=== PATIENT | male | born 1930 | race Caucasian/White ===

== ENCOUNTER 2016-11-26 11:34 | Emergency (ER) | payer MEDICARE ==
[2016-11-26 11:42] VITALS: BP 120/73
--- NOTE | 2016-11-26 12:21 | UC ---
Throat Pain/Nasal Shaw HPI - HPI Summary HPI Summary: had 4 months of cough that got better with inhalers rx by PCP. Has remaining 2 weeks of sinus pain and congestion with post nasal drip for 2 weeks - History of Current Complaint Hx Obtained From: Patient Onset/Duration: Lasting Weeks - 2, Still Present Severity: Moderate Pain Intensity: 4 Pain Scale Used: 0-10 Numeric Cough: Nonproductive Associated Signs & Symptoms: Positive: Sinus Discomfort, Nasal Discharge <Jennifer Charles - Last Filed: 11/26/16 12:33> <Berenice Hawkins - Last Filed: 11/26/16 13:30> - History of Current Complaint Chief Complaint: UCRespiratory Stated Complaint: SINUS,SORE THROAT,CONGESTION Time Seen by Provider: 11/26/16 12:15 - Allergies/Home Medications Allergies/Adverse Reactions: Allergies Allergy/AdvReac Type Severity Reaction Status Date / Time muscle relaxers AdvReac Mild makes less Uncoded 11/26/16 11:43 relaxed Home Medications: Home Medications Fluticas/Salmet 230/21 HFA(NF) [Advair HFA 23O/21 (NF)] 1 puff PO BID 11/26/16 [ History Confirmed 11/26/16] PMH/Surg Hx/FS Hx/Imm Hx Previously Healthy: No Respiratory History: Other Other Respiratory History: bronchospasm GI/ History: Gastroesophageal Reflux Neurological History: Dementia - mild - Surgical History Surgical History: Yes Surgery Procedure, Year, and Place: appendectomy/tonsilectomy "Years Ago". right ankle SURGERY - Family History Known Family History: Positive: None - Social History Occupation: Employed Full-time Lives: With Family Alcohol Use: Occasionally Substance Use Type: None Smoking Status (MU): Former Smoker Amount Used/How Often: VERY SHORT PERIOD OF TIME When Did the Patient Quit Smoking/Using Tobacco: YEARS AGO Household Exposure Type: Cigarettes - Immunization History Most Recent Influenza Vaccination: 01/27/13 Most Recent Tetanus Shot: unable to recall Most Recent Pneumonia Vaccination: NA <Jennifer Charles - Last Filed: 11/26/16 12:33> Review of Systems Constitutional: Negative Skin: Negative Eyes: Negative ENT: Nasal Discharge, Sinus Congestion, Sinus Pain/Tenderness Respiratory: Cough Cardiovascular: Negative Gastrointestinal: Negative Genitourinary: Negative Motor: Negative Neurovascular: Negative Musculoskeletal: Negative Neurological: Negative Psychological: Negative All Other Systems Reviewed And Are Negative: Yes <Jennifer Charles - Last Filed: 11/26/16 12:33> Physical Exam Triage Information Reviewed: Yes Appearance: Well-Appearing, No Pain Distress, Well-Nourished Vital Signs: Initial Vital Signs Temp 97.4 F 11/26/16 11:37 Pulse 55 11/26/16 11:37 Resp 18 11/26/16 11:37 BP 120/73 11/26/16 11:37 Pulse Ox 95 11/26/16 11:37 Vital Signs Reviewed: Yes Eye Exam: Normal Eyes: Positive: Conjunctiva Clear ENT Exam: Normal ENT: Positive: Normal ENT inspection, Hearing grossly normal, Pharynx normal, TMs normal. Negative: Nasal congestion, Nasal drainage, Tonsillar swelling, Tonsillar exudate, Trismus, Muffled/hoarse voice Dental Exam: Normal Neck exam: Normal Neck: Positive: Supple, Nontender, No Lymphadenopathy Respiratory Exam: Normal Respiratory: Positive: Chest non-tender, Lungs clear, Normal breath sounds, No respiratory distress, No accessory muscle use Cardiovascular Exam: Normal Cardiovascular: Positive: RRR, No Murmur, Pulses Normal, Brisk Capillary Refill Musculoskeletal Exam: Normal Musculoskeletal: Positive: Strength Intact, ROM Intact, No Edema Neurological Exam: Normal Neurological: Positive: Alert, Muscle Tone Normal Psychological Exam: Normal Skin Exam: Normal <Jennifer Charles - Last Filed: 11/26/16 12:33> Vital Signs: Initial Vital Signs Temp 97.4 F 11/26/16 11:37 Pulse 55 11/26/16 11:37 Resp 18 11/26/16 11:37 BP 120/73 11/26/16 11:37 Pulse Ox 95 11/26/16 11:37 <Breenice Hawkins - Last Filed: 11/26/16 13:30> Throat Pain/Nasal Course/Dx - Course Assessment/Plan: Flonase, augmentin, increase fluids, follow with pcp - Differential Dx/Diagnosis Differential Diagnosis/HQI/PQRI: Otitis Media, Pharyngitis, Sinusitis, URI Provider Diagnoses: Sinusitis <Jennifer Charles - Last Filed: 11/26/16 12:33> Discharge <Jennifer Charles - Last Filed: 11/26/16 12:33> <Berenice Hawkins - Last Filed: 11/26/16 13:30> - Discharge Plan Condition: Stable Disposition: HOME Prescriptions: Amoxicillin/Clavulanate TAB* [Augmentin TAB 875*] 875 mg PO BID #20 tab Fluticasone NASAL SPRAY 50MCG* [Flonase NASAL SPRAY 50MCG*] 2 spray BOTH NARES DAILY #1 btl Patient Education Materials: Sinusitis (ED), How to Use Nasal Stanley (ED) Referrals: Naun Hill MD [Primary Care Provider] - 2 Weeks Attestation Statement User Type: Provider - I was available for consult. This patient was seen by the LE[facility]. The patient was not presented to, seen by, or examined by me. -Jaime <Bereniec Hawkins - Last Filed: 11/26/16 13:30>
== END 2016-11-26 12:28 | disposition home or self-care (01) ==
LOC: UCEAST 11:34
DX: J32.9 Chronic sinusitis, unspecified (principal); Z87.891 Personal history of nicotine dependence
CPT/HCPCS: 99212; G0463

== ENCOUNTER 2016-12-02 21:09 | Emergency (ER) | payer MEDICARE ==
[2016-12-02 21:19] VITALS: BP 130/80
[2016-12-02] MEDS ORDERED: predniSONE TAB* 20 MG PO ONE (21:58)
--- NOTE | 2016-12-02 22:00 | UC ---
Throat Pain/Nasal Shaw HPI - HPI Summary HPI Summary: 86yo male being treated with augmentin for a sinus infection doing well until today when he started coughing a lot increased sinus pressure thinks it's due to dust in the house recent home renovation - History of Current Complaint Chief Complaint: UCRespiratory Stated Complaint: SINUS INFECTION RE-CHECK Time Seen by Provider: 12/02/16 21:36 Hx Obtained From: Patient Onset/Duration: Gradual Onset, Lasting Days Severity: Mild Pain Intensity: 1 Pain Scale Used: 0-10 Numeric Cough: Nonproductive Associated Signs & Symptoms: Positive: Sinus Discomfort, Nasal Discharge - Epiglottits Risk Factors Epiglottis Risk Factors: Negative - Allergies/Home Medications Allergies/Adverse Reactions: Allergies Allergy/AdvReac Type Severity Reaction Status Date / Time muscle relaxers AdvReac Mild makes less Uncoded 12/02/16 21:20 relaxed Home Medications: Home Medications Fluticasone Propionate (Nasal) [Allergy Relief] 50 mcg NA 12/02/16 [History Confirmed 12/02/16] Levothyroxine TAB* [Synthroid TAB*] 25 mcg PO DAILY 12/02/16 [History Confirmed 12/02/16] Proair Hfa* 2 puff PRN 12/02/16 [History] Quetiapine Fumarate [Quetiapine Fumarate ER] 2 tab PO BEDTIME 12/02/16 [History Confirmed 12/02/16] PMH/Surg Hx/FS Hx/Imm Hx Previously Healthy: Yes Endocrine History: Hypothyroidism Respiratory History: Asthma, Bronchitis - Surgical History Surgical History: Yes Surgery Procedure, Year, and Place: appendectomy/tonsilectomy "Years Ago". right ankle SURGERY - Family History Known Family History: Positive: Hypertension - Social History Alcohol Use: Daily Alcohol Amount: WINE WITH DINNER Substance Use Type: None Smoking Status (MU): Former Smoker Amount Used/How Often: VERY SHORT PERIOD OF TIME When Did the Patient Quit Smoking/Using Tobacco: YEARS AGO Household Exposure Type: Cigarettes - Immunization History Most Recent Influenza Vaccination: 01/27/13 Most Recent Tetanus Shot: unable to recall Most Recent Pneumonia Vaccination: NA Review of Systems Constitutional: Negative Skin: Negative Eyes: Negative ENT: Sinus Congestion Respiratory: Cough Cardiovascular: Negative Gastrointestinal: Negative Genitourinary: Negative Motor: Negative Neurovascular: Negative Musculoskeletal: Negative Neurological: Negative Psychological: Negative All Other Systems Reviewed And Are Negative: Yes Physical Exam Triage Information Reviewed: Yes Appearance: No Pain Distress, Well-Nourished Vital Signs: Initial Vital Signs Temp 97.9 F 12/02/16 21:15 Pulse 58 12/02/16 21:15 Resp 16 12/02/16 21:15 BP 130/80 12/02/16 21:15 Pulse Ox 100 12/02/16 21:15 Eyes: Positive: Conjunctiva Clear ENT: Positive: Hearing grossly normal, Nasal congestion, Nasal drainage. Negative: Trismus, Muffled/hoarse voice Neck: Positive: Supple, Nontender, No Lymphadenopathy Respiratory: Positive: Lungs clear, Normal breath sounds, No respiratory distress, No accessory muscle use Cardiovascular: Positive: RRR, No Murmur Musculoskeletal: Positive: Strength Intact, ROM Intact Neurological: Positive: Alert Psychological Exam: Normal Skin Exam: Normal Throat Pain/Nasal Course/Dx - Differential Dx/Diagnosis Provider Diagnoses: sinusitis Discharge - Discharge Plan Condition: Stable Disposition: HOME Prescriptions: Prednisone [Deltasone] 20 mg PO DAILY #2 tab Patient Education Materials: Sinusitis (ED) Referrals: Naun Hill MD [Primary Care Provider] - 3 Days Additional Instructions: continue current treatment get rechecked early next week if not better
== END 2016-12-02 22:17 | disposition home or self-care (01) ==
LOC: UCEAST 21:09
DX: Z51.89 Encounter for other specified aftercare (principal); J32.9 Chronic sinusitis, unspecified; E03.9 Hypothyroidism, unspecified; J45.909 Unspecified asthma, uncomplicated; Z87.891 Personal history of nicotine dependence
CPT/HCPCS: 99212; G0463; J7512

== ENCOUNTER 2016-12-16 04:26 | Emergency (ER) | payer MEDICARE ==
[2016-12-16] MEDS ORDERED: diPHENhydraMINE PO* 25 MG PO ONE (04:39)
[2016-12-16] MEDS ORDERED: Ketorolac INJ* 60 MG/2 ML VIAL IM ONE (04:39)
--- NOTE | 2016-12-16 04:56 | ED ---
Veronique Cuevas Alfonso, scribed for Daren Grajeda MD on 12/16/16 at 0444 . Bite Injury/Animal - HPI Summary HPI Summary: This patient is an 86 year old M presenting to [facility] accompanied by with a chief complaint of hornet stings at 1000 yesterday. Pt rates the pain 7/10 in severity. Symptoms aggravated and alleviated by nothing. Sx not alleviated by Benadryl and Aleve taken at 2000 yesterday. Pt reports bilateral leg pain and right elbow pain. Pt has slurred speech at baseline per . PMHx of dementia. - History of Current Complaint Chief Complaint: EDAnimalBite Stated Complaint: STUNG BY HORNETS ON 12-15-16 Time Seen by Provider: 12/16/16 04:36 Hx Obtained From: Patient, Family/Canine Enforcement Officer - Onset of Injury: Happened hours ago - 1000 yesterday, Still Present Type of Bite: Animal - "Hornet" Severity Initially: Moderate Severity Currently: Moderate Pain Intensity: 7 Pain Scale Used: 0-10 Numeric Aggravating Factor(s): Nothing Alleviating Factor(s): Nothing - Allergies/Home Medications Allergies/Adverse Reactions: Allergies Allergy/AdvReac Type Severity Reaction Status Date / Time muscle relaxers AdvReac Mild makes less Uncoded 12/16/16 04:43 relaxed PMH/Surg Hx/FS Hx/Imm Hx Endocrine/Hematology History: Reports: Hx Thyroid Disease Denies: Hx Diabetes Cardiovascular History: Reports: Hx Coronary Artery Disease, Hx Hypercholesterolemia, Hx Valvular Heart Disease - Tricuspid, mitral Denies: Hx Hypertension, Hx Pacemaker/ICD Respiratory History: Reports: Hx Asthma - new dx 04/2013, Hx Sleep Apnea - REFUSES TO USE MACHINE, Other Respiratory Problems/Disorders - ex-smoker, dyspnea Denies: Hx Chronic Obstructive Pulmonary Disease (COPD) GI History: Reports: Hx Gastroesophageal Reflux Disease - ON MEDICATION FOR, Hx Irritable Bowel Denies: Hx Ulcer History: Reports: Hx Benign Prostatic Hyperplasia Denies: Hx Kidney Stones Musculoskeletal History: Reports: Hx Arthritis - NECK Denies: Hx Rheumatoid Arthritis, Hx Osteoporosis Sensory History: Reports: Hx Cataracts, Hx Contacts or Glasses - READING Denies: Hx Hearing Aid Opthamlomology History: Reports: Hx Cataracts, Hx Contacts or Glasses - READING Neurological History: Reports: Hx Dementia Denies: Other Neuro Impairments/Disorders Psychiatric History: Reports: Hx Anxiety - NO MEDICATION FOR, Hx Depression - NO MEDICATION FOR, Other Psychiatric Issues/Disorders - dementia issues Denies: Hx Eating Disorder, Hx Panic Disorder, Hx of Violent Episodes Against Others - Surgical History Surgery Procedure, Year, and Place: appendectomy/tonsilectomy "Years Ago". right ankle SURGERY Hx Anesthesia Reactions: No Infectious Disease History: No Infectious Disease History: Denies: Hx Clostridium Difficile, Hx Hepatitis, Hx Human Immunodeficiency Virus (HIV), Hx of Known/Suspected MRSA, Hx Shingles, Hx Tuberculosis, Hx Known/ Suspected VRE, Hx Known/Suspected VRSA, History Other Infectious Disease, Traveled Outside the [place] in Last 30 Days - Family History Known Family History: Positive: Hypertension - Social History Alcohol Use: Daily Alcohol Amount: WINE WITH DINNER Substance Use Type: Reports: None Hx Tobacco Use: No Smoking Status (MU): Former Smoker Amount Used/How Often: VERY SHORT PERIOD OF TIME Review of Systems Negative: Fever Positive: Other - Positive "hornet stings," bilateral leg pain, right elbow pain , and slurred speech (baseline). All Other Systems Reviewed And Are Negative: Yes Physical Exam Vital Signs On Initial Exam: Initial Vitals Temp Pulse Resp BP Pulse Ox 97.2 F 70 18 116/71 97 12/16/16 04:32 12/16/16 04:32 12/16/16 04:32 12/16/16 04:32 12/16/16 04:32 Diagnostics - Vital Signs Vital Signs Temp Pulse Resp BP Pulse Ox 12/16/16 04:33 70 96 12/16/16 04:32 97.2 F 70 18 116/71 97 - Laboratory Lab Statement: Any lab studies that have been ordered have been reviewed, and results considered in the medical decision making process. Bite Injury Course/Dx - Course Assessment/Plan: This patient is an 86 year old M presenting to [facility] accompanied by with a chief complaint of hornet stings at 1000 yesterday. Symptoms not alleviated by Benadryl and Aleve taken at 2000 yesterday. Pt reports bilateral leg pain and right elbow pain. Pt has slurred speech at baseline per . PMHx of dementia. Pt given Toradol and Benadryl in the ED course. Patient will be discharged with follow up from PCP. Pt and are agreeable with this plan. - Diagnoses Provider Diagnosis: Insect sting Discharge - Discharge Plan Condition: Stable Disposition: HOME Patient Education Materials: Insect Bite or Sting (ED) Referrals: Naun Hill MD [Primary Care Provider] - 3 Days The documentation as recorded by the Veronique gorman Alfonso accurately reflects the service I personally performed and the decisions made by , Daren Grajeda MD.
[2016-12-16 05:45] VITALS: BP 122/101
== END 2016-12-16 05:43 | disposition home or self-care (01) ==
LOC: ED 04:26
DX: T63.441A Toxic effect of venom of bees, accidental (unintentional), initial encounter (principal); M25.521 Pain in right elbow; R47.81 Slurred speech; Y92.9 Unspecified place or not applicable; Z87.891 Personal history of nicotine dependence
CPT/HCPCS: 96372; 99283; A9270-GY; J1885

== ENCOUNTER 2017-06-18 16:35 | Emergency (ER) | payer MEDICARE ==
[2017-06-18 17:05] VITALS: BP 139/89
--- NOTE | 2017-06-18 17:42 | UC ---
Abdominal Pain Male HPI - HPI Summary HPI Summary: Patient presents with an unremarkable past medical history. He reports he typically works out 3x a week. He states today when he was in congregational he had sudden severe RUQ abdominl, lower rib cage pain. He states the pain is worse with certain movements, and he states this afternoon when he laid down on his left side it bothered him more, and when he turns to the right side it hurts more. He denies any new activity that might account for the pain. He denies any fever, chills, nausea, vomiting, diarrhea. He states he recovered from GI illness 2 wees ago. - History of Current Complaint Chief Complaint: UCAbdominalPain Stated Complaint: PAIN IN LOWER ABD Time Seen by Provider: 06/18/17 17:28 Hx Obtained From: Patient, Family/Religious Assistant Onset/Duration: Sudden Onset, Lasting Minutes Severity Initially: Severe Severity Currently: Moderate Pain Intensity: 8 Location: Discrete At: RUQ Character: Sharp Aggravating Factor(s): Movement Alleviating Factor(s): Spontaneous Resolution Associated Signs And Symptoms: Positive: Negative - Risk Factors Testicular Torsion: Negative Cardiac Risk Factors: Negative - Allergies/Home Medications Allergies/Adverse Reactions: Allergies Allergy/AdvReac Type Severity Reaction Status Date / Time prednisone Allergy Anxiety Verified 06/18/17 17:06 muscle relaxers AdvReac Mild makes less Uncoded 06/18/17 17:05 relaxed PMH/Surg Hx/FS Hx/Imm Hx Previously Healthy: Yes - Surgical History Surgical History: Yes Surgery Procedure, Year, and Place: appendectomy/tonsilectomy "Years Ago". right ankle SURGERY - Family History Known Family History: Positive: None, Hypertension - Social History Occupation: Retired Lives: Alone Alcohol Use: Daily Alcohol Amount: WINE WITH DINNER Substance Use Type: None Smoking Status (MU): Former Smoker Amount Used/How Often: VERY SHORT PERIOD OF TIME When Did the Patient Quit Smoking/Using Tobacco: YEARS AGO Household Exposure Type: Cigarettes - Immunization History Most Recent Influenza Vaccination: 01/27/13 Most Recent Tetanus Shot: unable to recall Most Recent Pneumonia Vaccination: NA Review of Systems Constitutional: Negative Skin: Negative Eyes: Negative ENT: Negative Respiratory: Negative Cardiovascular: Negative Gastrointestinal: Abdominal Pain Genitourinary: Negative Motor: Negative Neurovascular: Negative Musculoskeletal: Negative Neurological: Negative Psychological: Negative Is Patient Immunocompromised?: No All Other Systems Reviewed And Are Negative: Yes Physical Exam Triage Information Reviewed: Yes Appearance: Pain Distress Vital Signs: Initial Vital Signs Temp 98.7 F 06/18/17 17:00 Pulse 71 06/18/17 17:00 Resp 20 06/18/17 17:00 BP 139/89 06/18/17 17:00 Pulse Ox 99 06/18/17 17:00 Vital Signs Reviewed: Yes Eye Exam: Normal ENT Exam: Normal Neck exam: Normal Neck: Positive: 1 Respiratory Exam: Normal Cardiovascular Exam: Normal Abdominal Exam: Other - pain on palpation of the RUQ and along the costal margins on the right side. Musculoskeletal Exam: Normal Neurological Exam: Normal Psychological Exam: Normal Skin Exam: Normal Abd Pain Male Course/Dx - Course Course Of Treatment: Patient presents with complaints of sudden sharp severe RUQ abdominal and lower costal margins of pain. The episodes have been intermittent since congregational and appear to be somewhat reporducible at times, and other times spontaeous. I did a chest xray in the department per his request which was read a negative. EKG was obtained and read by Dr. Rogers as sinus bradycarida, and was discussed with the patient. Given the symptoms, advanced age I did recommend that he go directly to the ER. He declined ambulance transport and perferred to drive himself. His was with him and able to accompany his to the ER. - Differential Dx/Clinical Impression Differential Diagnosis/HQI/PQRI: Other - abdominal pain Provider Diagnoses: abdominal pain Discharge - Discharge Plan Condition: Stable Disposition: OTHER Discharge Disposition Comment: go directly to the er. Patient Education Materials: Acute Abdominal Pain (DC) Referrals: Naun Hill MD [Primary Care Provider] - Additional Instructions: go directly to the emergency department.
--- NOTE | 2017-06-18 18:49 | RAD ---
INDICATION: Atraumatic right upper quadrant and lower right rib pain COMPARISON: Chest x-ray dated December 10, 2013 TECHNIQUE: PA and lateral views of the chest were obtained. FINDINGS: The heart and mediastinum are normal in size and contour. Stable linear density overlying the right costophrenic angle on the AP view is similar in appearance to the prior chest x-ray and likely represents scarring. Otherwise the lungs are grossly clear. There is no evidence of large pleural effusion. Visualized bones are normal for the patient's age. There is no radiographic evidence of free air beneath the diaphragm IMPRESSION: No radiographic evidence of acute cardiopulmonary disease.
== END 2017-06-18 18:05 ==
LOC: UCEAST 16:35
DX: R10.11 Right upper quadrant pain (principal); R07.81 Pleurodynia; Z88.8 Allergy status to other drugs, medicaments and biological substances; Z87.891 Personal history of nicotine dependence
CPT/HCPCS: 71046; 93005; 99212; G0463

== ENCOUNTER 2017-06-18 19:11 | Emergency (ER) | payer MEDICARE ==
[2017-06-18] MEDS ORDERED: NS 0.9% 1000 ML* 1,000 ML IV ONE (21:30)
[2017-06-18 22:16] LABS: ABS Basophils 0.1 10^3/ul (0-0.2); ABS Eosinophils 0.1 10^3/ul (0-0.6); ABS Lymphocytes 2.3 10^3/ul (1.0-4.8); ABS Monocytes 0.5 10^3/ul (0-0.8); ABS Neutrophils 3.8 10^3/ul (1.5-7.7); ABS Nucleated RBC 0 10^3/ul; Eosinophil % 2.1 % (0-6); Hematocrit 40 % (42-52); Hemoglobin 13.4 g/dl (14.0-18.0); Lymphocyte % 33.6 % (25-47); Mean Corpuscular HGB Conc 33 g/dl (31-36); Mean Corpuscular Hemoglobin 31 pg (27-31); Mean Corpuscular Volume 93 fL (80-94); Mean Platelet Volume 8 um3 (7.4-10.4); Nucleated Red Blood Cells % 0.1; Platelet Count 203 10^3/ul (150-450); Red Blood Count 4.35 10^6/ul (4.0-5.4); Red Cell Distribution Width 14 % (10.5-15); White Blood Count 6.8 10^3/ul (3.5-10.8)
[2017-06-18 22:30] LABS: Urine Appearance Clear; Urine Blood Negative (Negative); Urine Color Yellow; Urine Ketones Negative (Negative); Urine Protein Negative (Negative); Urine Specific Gravity 1.011 (1.010-1.030); Urine Urobilinogen Negative (Negative)
[2017-06-18 22:31] LABS: EGFR Non-African American 46.3 (>60)
[2017-06-18 22:32] LABS: INR 0.9 (0.77-1.02)
--- NOTE | 2017-06-18 22:32 | RAD ---
CLINICAL HISTORY: Abdominal pain. Relevant surgical history includes appendectomy. COMPARISON: None TECHNIQUE: Noncontrast CT examination of the abdomen and pelvis from the lung bases through the initial tuberosities. FINDINGS: VISUALIZED LUNG BASES: The visualized lung bases are grossly clear. There is no pleural effusion. ABDOMEN AND PELVIS: Evaluation of the solid organs and vasculature is limited without intravenous contrast. The liver, spleen and adrenal glands are grossly normal in appearance. The gallbladder is normal. Coarse calcifications are noted in the otherwise normal-appearing appendix. The kidneys are normal in appearance without focal mass, calcification or signs of hydronephrosis. Evaluation of the gastrointestinal tract is limited without oral contrast. The small and large bowel are not distended. Consistent with the patient's reported medical history, the appendix is not seen. There are innumerable rectosigmoid diverticula but no focal inflammatory change consistent with diverticulitis. There is no gross retroperitoneal or mesenteric lymphadenopathy. A penile prosthesis is noted. The prostate is enlarged measuring 4.1 x 4.9 cm in the axial plane and approximately 5.6 cm in the cephalocaudal projection. The abdominal aorta and iliac arteries are normal in course and diameter. Degenerative changes include multilevel loss of intervertebral disc height involving the lower thoracic and lumbar spine.There are no sinister bone lesions. IMPRESSION: 1. Diverticulosis without signs of acute inflammatory change within the limitations of a noncontrast CT examination. 2. There are chronic, degenerative and postsurgical changes described in the body the report but no acute findings that would account for the patient's current presentation.
--- NOTE | 2017-06-18 23:53 | ED ---
Go Cuevas Tiffany, scribed for Bin Reyna MD on 06/18/17 at 2155 . Abdominal Pain/Male - HPI Summary HPI Summary: The patient is an 86 year old M referred from [facility] accompanied by with a chief complaint of right-sided abdominal pain since this morning. The pain is described as sharp. The patient rates the pain 7/10 in severity. Symptoms aggravated by nothing. Symptoms alleviated by nothing. Patient denies fever, shortness of breath, cough and dysuria. - History of Current Complaint Chief Complaint: EDAbdPain Stated Complaint: SHARP ABD PAIN, COMING FROM CC Time Seen by Provider: 06/18/17 21:17 Hx Obtained From: Patient Onset/Duration: Lasting Hours - Since this morning, Still Present Severity Currently: Moderate Pain Intensity: 7 Pain Scale Used: 0-10 Numeric Character: Sharp Aggravating Factor(s): Nothing Alleviating Factor(s): Nothing Associated Signs And Symptoms: Positive: Negative - fever, shortness of breath, cough and dysuria - Allergies/Home Medications Allergies/Adverse Reactions: Allergies Allergy/AdvReac Type Severity Reaction Status Date / Time prednisone Allergy Anxiety Verified 06/18/17 17:06 muscle relaxers AdvReac Mild makes less Uncoded 06/18/17 17:05 relaxed PMH/Surg Hx/FS Hx/Imm Hx Previously Healthy: No Endocrine/Hematology History: Reports: Hx Thyroid Disease Denies: Hx Diabetes Cardiovascular History: Reports: Hx Coronary Artery Disease, Hx Hypercholesterolemia, Hx Valvular Heart Disease - Tricuspid, mitral Denies: Hx Hypertension, Hx Pacemaker/ICD Respiratory History: Reports: Hx Asthma - new dx 04/2013, Hx Sleep Apnea - REFUSES TO USE MACHINE, Other Respiratory Problems/Disorders - ex-smoker, dyspnea Denies: Hx Chronic Obstructive Pulmonary Disease (COPD) GI History: Reports: Hx Gastroesophageal Reflux Disease - ON MEDICATION FOR, Hx Irritable Bowel Denies: Hx Ulcer History: Reports: Hx Benign Prostatic Hyperplasia Denies: Hx Kidney Stones Musculoskeletal History: Reports: Hx Arthritis - NECK Denies: Hx Rheumatoid Arthritis, Hx Osteoporosis Sensory History: Reports: Hx Cataracts, Hx Contacts or Glasses - READING Denies: Hx Hearing Aid Opthamlomology History: Reports: Hx Cataracts, Hx Contacts or Glasses - READING Neurological History: Reports: Hx Dementia Denies: Other Neuro Impairments/Disorders Psychiatric History: Reports: Hx Anxiety - NO MEDICATION FOR, Hx Depression - NO MEDICATION FOR, Other Psychiatric Issues/Disorders - dementia issues Denies: Hx Eating Disorder, Hx Panic Disorder, Hx of Violent Episodes Against Others - Surgical History Surgery Procedure, Year, and Place: appendectomy/tonsilectomy "Years Ago". right ankle SURGERY Hx Anesthesia Reactions: No Infectious Disease History: No Infectious Disease History: Denies: Hx Clostridium Difficile, Hx Hepatitis, Hx Human Immunodeficiency Virus (HIV), Hx of Known/Suspected MRSA, Hx Shingles, Hx Tuberculosis, Hx Known/ Suspected VRE, Hx Known/Suspected VRSA, History Other Infectious Disease, Traveled Outside the [place] in Last 30 Days - Family History Known Family History: Positive: Hypertension - Social History Alcohol Use: Daily Alcohol Amount: WINE WITH DINNER Hx Substance Use: No Substance Use Type: Reports: None Hx Tobacco Use: Yes Smoking Status (MU): Former Smoker Amount Used/How Often: VERY SHORT PERIOD OF TIME Review of Systems Negative: Fever Negative: Shortness Of Breath, Cough Positive: Abdominal Pain - Right-sided Negative: dysuria All Other Systems Reviewed And Are Negative: Yes Physical Exam - Summary Physical Exam Summary: General: well-appearing, no pain distress Skin: warm, color reflects adequate perfusion, dry Head: normal Eyes: EOMI, NOE ENT: normal Neck: supple, nontender Respiratory: CTA, breath sounds present Cardiovascular: RRR Abdomen: soft, nontender Bowel: present Musculoskeletal: normal, strength/ROM intact Neurological: normal, sensory/motor intact, A&O x3 Psychological: affect/mood appropriate Triage Information Reviewed: Yes Vital Signs On Initial Exam: Initial Vitals Temp Pulse Resp BP Pulse Ox 97.7 F 65 14 137/84 97 06/18/17 19:23 06/18/17 19:23 06/18/17 19:23 06/18/17 19:23 06/18/17 19:23 Vital Signs Reviewed: Yes Diagnostics - Vital Signs Vital Signs Temp Pulse Resp BP Pulse Ox 06/18/17 21:00 56 130/75 99 06/18/17 20:39 85 06/18/17 20:34 164/78 06/18/17 19:23 97.7 F 65 14 137/84 97 - Laboratory Result Diagrams: 06/18/17 22:04 06/18/17 22:04 Lab Statement: Any lab studies that have been ordered have been reviewed, and results considered in the medical decision making process. - CT Abd/Pel CT Interpretation Completed By: Radiologist - 1. Diverticulosis without signs of acute inflammatory change within the limitations of a noncontrast CT examination. 2. There are chronic, degenerative and postsurgical changes described in the body the report but no acute findings that would account for the patient's current presentation. ED physician has reviewed this report. Abdominal Pain Fem Course/Dx - Course Course Of Treatment: 86 y/o M presents with short intermittent episodes of abdominal pain. Labs and exam were unremarkable. Upon evaluation, patient feels better and is pain free in the ED. Patient will be discharged with no prescriptions. He is instructed to take Tylenol as needed. - Diagnoses Provider Diagnoses: Nonspecific abdominal pain, Muscle spasm Discharge - Discharge Plan Condition: Stable Disposition: HOME Patient Education Materials: Abdominal Pain (ED), Muscle Spasm (ED) Referrals: Naun Hill MD [Primary Care Provider] - Additional Instructions: Take Tylenol as needed for pain. RETURN TO EMERGENCY DEPARTMENT FOR ANY NEW OR WORSENING SYMPTOMS The documentation as recorded by the Go gorman Tiffany accurately reflects the service I personally performed and the decisions made by , Bin Reyna MD.
[2017-06-19 00:19] VITALS: BP 141/87
== END 2017-06-19 00:19 | disposition home or self-care (01) ==
LOC: ED 19:11
DX: R10.9 Unspecified abdominal pain (principal); M62.838 Other muscle spasm
CPT/HCPCS: 36415; 74176; 80053; 81003; 82150; 83690; 85025; 85610; 85730; 86140; 99283

== ENCOUNTER 2017-11-03 17:51 | Emergency (ER) | payer MEDICARE ==
[2017-11-03 18:39] VITALS: BP 130/89
--- NOTE | 2017-11-03 18:39 | UC ---
Throat Pain/Nasal Shaw HPI - HPI Summary HPI Summary: 87 yo male presents with sinus pain/pressure/congestion, productive cough, and loose stools that began last night. He has not taken anything for his symptoms. Denies fever, chills, SOB, chest pain, abdominal pain, n/v. - History of Current Complaint Chief Complaint: UCRespiratory Stated Complaint: SINUS COMPLAINT,DIARRHEA Time Seen by Provider: 11/03/17 18:38 Hx Obtained From: Patient Onset/Duration: Sudden Onset Severity: Moderate Pain Intensity: 6 Pain Scale Used: 0-10 Numeric - Allergies/Home Medications Allergies/Adverse Reactions: Allergies Allergy/AdvReac Type Severity Reaction Status Date / Time prednisone Allergy Anxiety Verified 11/03/17 18:39 muscle relaxers AdvReac Mild makes less Uncoded 11/03/17 18:39 relaxed Home Medications: Home Medications Duncan Zest 1 cap 11/03/17 [History] PMH/Surg Hx/FS Hx/Imm Hx Endocrine History: Hypothyroidism Respiratory History: Asthma - Surgical History Surgical History: Yes Surgery Procedure, Year, and Place: appendectomy/tonsilectomy "Years Ago". right ankle SURGERY - Family History Known Family History: Positive: None, Hypertension - Social History Occupation: Retired Lives: With Family Alcohol Use: Daily Alcohol Amount: WINE WITH DINNER Substance Use Type: None Smoking Status (MU): Former Smoker Amount Used/How Often: VERY SHORT PERIOD OF TIME When Did the Patient Quit Smoking/Using Tobacco: YEARS AGO Household Exposure Type: Cigarettes - Immunization History Most Recent Influenza Vaccination: 01/27/13 Most Recent Tetanus Shot: unable to recall Most Recent Pneumonia Vaccination: NA Review of Systems Constitutional: Negative Skin: Negative Eyes: Negative ENT: Nasal Discharge, Sinus Congestion, Sinus Pain/Tenderness Respiratory: Cough Cardiovascular: Negative Gastrointestinal: Other - Loose stools Neurovascular: Negative Neurological: Negative Psychological: Negative All Other Systems Reviewed And Are Negative: Yes Physical Exam - Summary Physical Exam Summary: GENERAL: NAD. WDWN. No pain distress. SKIN: No rashes, sores, lesions, or open wounds. HEENT: Head: AT/NC Eyes: EOM intact. Conjunctiva clear without inflammation or discharge. Ears: Hearing grossly normal. TMs intact, no bulging, erythema, or edema. Nose: Nasal mucosa mildly swollen and erythematous with yellow/ clear discharge. TTP maxillary and frontal sinus. Throat: Posterior oropharynx without exudates, erythema, or tonsillar enlargement. Uvula midline. NECK: Supple. Nontender. No lymphadenopathy. CHEST: CTAB. No r/r/w. No accessory muscle use. Breathing comfortably and in no distress. CV: RRR. Without m/r/g. Pulses intact. Brisk cap refill. ABDOMEN: Soft. NTTP. No distention or guarding. No CVA tenderness. Bowel sounds present NEURO: Alert. CN II-XII grossly intact. PSYCH: Age appropriate behavior. Triage Information Reviewed: Yes Vital Signs: Initial Vital Signs Temp 98.2 F 11/03/17 18:34 Pulse 56 11/03/17 18:34 Resp 18 11/03/17 18:34 BP 130/89 11/03/17 18:34 Pulse Ox 99 11/03/17 18:34 Throat Pain/Nasal Course/Dx - Course Course Of Treatment: I stressed to the pt that his symptoms are likely viral and he should try OTC methods and give his symptoms more time. He became frustrated and said that he would like an antibiotic. - Differential Dx/Diagnosis Provider Diagnoses: Sinusitis Discharge - Sign-Out/Discharge Documenting (check all that apply): Discharge/Admit/Transfer - Discharge Plan Condition: Stable Disposition: HOME Prescriptions: Amoxicillin PO (*) [Amoxicillin 500 MG CAP*] 500 mg PO Q12H #14 cap Patient Education Materials: Sinusitis (ED) Referrals: Naun Hill MD [Primary Care Provider] - Additional Instructions: If you develop a fever, shortness of breath, chest pain, new or worsening symptoms - please call your PCP or go to the ED. Your blood pressure was high at todays visit. Please see your primary provider within 4 weeks for recheck and re-evaluation. - Billing Disposition and Condition Condition: STABLE Disposition: Home
== END 2017-11-03 19:05 | disposition home or self-care (01) ==
LOC: UCEAST 17:51
DX: J32.9 Chronic sinusitis, unspecified (principal); Z88.8 Allergy status to other drugs, medicaments and biological substances; Z87.891 Personal history of nicotine dependence
CPT/HCPCS: 99212; G0463

== ENCOUNTER 2018-05-06 13:36 | Emergency (ER) | payer MEDICARE ==
--- NOTE | 2018-05-06 14:05 | UC ---
Throat Pain/Nasal Shaw HPI - HPI Summary HPI Summary: came in today with sore throat reports a fall in the past few months--patient c/o SOB on arrival to triage he was not SOB after walking to room 6 patient was noted to be sob--he states he will frequently have poor circulation but currently--all fingers are cyanotic from pip distally - History of Current Complaint Chief Complaint: UCGeneralIllness Stated Complaint: SORE THROAT COUGH Time Seen by Provider: 05/06/18 13:58 Hx Obtained From: Patient Onset/Duration: Sudden Onset Pain Intensity: 2 Pain Scale Used: 0-10 Numeric Cough: Nonproductive Associated Signs & Symptoms: Positive: Hoarseness - Allergies/Home Medications Allergies/Adverse Reactions: Allergies Allergy/AdvReac Type Severity Reaction Status Date / Time prednisone AdvReac Severe Anxiety Verified 05/06/18 13:53 muscle relaxers AdvReac Mild makes less Uncoded 05/06/18 13:53 relaxed Home Medications: Home Medications Gabapentin CAP(*) [Neurontin 100 mg CAP(*)] 100 mg PO BID 05/06/18 [History Confirmed 05/06/18] QUEtiapine TAB* [Seroquel 25 MG TAB*] 50 mg PO DAILY 05/06/18 [History Confirmed 05/06/18] PMH/Surg Hx/FS Hx/Imm Hx Previously Healthy: Yes Endocrine History: Hypothyroidism Respiratory History: Asthma - Surgical History Surgical History: Yes Surgery Procedure, Year, and Place: appendectomy, tonsilectomy "Years Ago". right ankle SURGERY - Family History Known Family History: Positive: None, Hypertension - Social History Occupation: Retired Lives: With Family Alcohol Use: Daily Alcohol Amount: WINE WITH DINNER Substance Use Type: None Smoking Status (MU): Former Smoker Amount Used/How Often: VERY SHORT PERIOD OF TIME When Did the Patient Quit Smoking/Using Tobacco: YEARS AGO Household Exposure Type: Cigarettes - Immunization History Most Recent Influenza Vaccination: 01/27/13 Most Recent Tetanus Shot: unable to recall Most Recent Pneumonia Vaccination: NA Review of Systems All Other Systems Reviewed And Are Negative: Yes Constitutional: Positive: Negative Skin: Positive: Negative Eyes: Positive: Negative ENT: Positive: Sore Throat Respiratory: Positive: Shortness Of Breath, Cough Cardiovascular: Positive: Negative Gastrointestinal: Positive: Negative Genitourinary: Positive: Negative Motor: Positive: Negative Neurovascular: Positive: Negative Musculoskeletal: Positive: Negative Neurological: Positive: Negative Psychological: Positive: Negative Is Patient Immunocompromised?: No Physical Exam Triage Information Reviewed: Yes Appearance: Well-Nourished, Ill-Appearing, Pain Distress Vital Signs: Initial Vital Signs Temp 98 F 05/06/18 13:45 Pulse 54 05/06/18 13:45 Resp 18 05/06/18 13:45 BP 139/96 05/06/18 13:45 Vital Signs Reviewed: Yes Eye Exam: Normal Eyes: Positive: Conjunctiva Clear ENT Exam: Normal ENT: Positive: Normal ENT inspection, Hearing grossly normal, Pharynx normal, TMs normal, Uvula midline. Negative: Nasal congestion, Trismus, Muffled voice, Hoarse voice, Dental tenderness, Sinus tenderness Dental Exam: Normal Neck exam: Normal Neck: Positive: Supple, Nontender, No Lymphadenopathy Respiratory Exam: Normal Respiratory: Positive: Chest non-tender, Lungs clear, Normal breath sounds, No respiratory distress, No accessory muscle use Cardiovascular Exam: Other Cardiovascular: Positive: No Murmur, Bradycardia, Distal Pulses Weak, Delayed Capillary Refill Abdominal Exam: Normal Abdomen Description: Positive: Nontender, No Organomegaly, Soft Bowel Sounds: Positive: Present Musculoskeletal Exam: Normal Musculoskeletal: Positive: Strength Intact, ROM Intact, No Edema Neurological Exam: Normal Neurological: Positive: Alert, Muscle Tone Normal Psychological Exam: Normal Skin Exam: Normal Diagnostics - EKG Cardiac Rate: Bradycardia Cardiac Rhythm: Sinus: Normal - 1 degree av block Ectopy: None ST Segment: Normal EKG Comparison: Other - pervious ekg rate in 50's Re-Evaluation - Re-Evaluation First Eval Change: Improved - sob relieved with oxygen Throat Pain/Nasal Course/Dx - Course Assessment/Plan: o2 saline lock [place] [facility] [place] care and assessment - Differential Dx/Diagnosis Provider Diagnosis: Bradycardia with 41-50 beats per minute, Shortness of breath at rest - Physician Notification/Consults Instructed by Provider To: Transfer Discharge - Sign-Out/Discharge Documenting (check all that apply): Patient Departure All imaging exams completed and their final reports reviewed: No Studies - Discharge Plan Condition: Guarded Disposition: TRANS HIGHER LVL OF CARE FAC Referrals: Naun Hill MD [Primary Care Provider] - - Billing Disposition and Condition Condition: GUARDED Disposition: Trans Higher Lvl of Care Fac - Attestation Statements Provider Attestation: Per institutional requirements, I have reviewed the chart, however, I was not consulted specifically or made aware of this patient by the midlevel provider. I did not personally evaluate, interact with , or disposition this patient.
[2018-05-06 14:32] VITALS: BP 152/93
== END 2018-05-06 14:35 | disposition short-term general hospital (02) ==
LOC: UCEAST 13:36
DX: R06.02 Shortness of breath (principal); R00.1 Bradycardia, unspecified; J02.9 Acute pharyngitis, unspecified; R05 Cough; J45.909 Unspecified asthma, uncomplicated; Z88.8 Allergy status to other drugs, medicaments and biological substances; Z87.891 Personal history of nicotine dependence
CPT/HCPCS: 93005; 99213; G0463

== ENCOUNTER 2018-05-06 15:01 | Emergency (ER) | payer MEDICARE ==
--- NOTE | 2018-05-06 15:14 | ED ---
Shortness of Breath - HPI Summary HPI Summary: This patient is a 87 year old M brought in by EMS from [facility] with a chief complaint of SOB since last night The patient rates the pain 0/10 in severity. [facility] care was concerned due to the patient being cyanotic and bradycardic with low O2 sat on room air. Patient reports dry cough. Patient denies CP and pain anywhere. He has breathing treatments and nebulizer at home but is unsure if he has COPD. When asked his medical history he states that he is confused and that when his gets to the ED she can tell the staff. Per EMS the patient had a moment of AMS in route and was given atropine. This cleared his AMS and the pt states this made him feel better. EMS states he was able to speak in full sentences the majority of the trip and was 95-96% on 2L, they did not see him on room air. - History of Current Complaint Time Seen by Provider: 05/06/18 15:03 Hx Obtained From: Patient, EMS Onset/Duration: Lasting Days, Still Present Timing: Constant Current Severity: Moderate Dyspnea At: Exertion Associated Signs & Symptoms: Cough (Nonproductive) - Allergy/Home Medications Allergies/Adverse Reactions: Allergies Allergy/AdvReac Type Severity Reaction Status Date / Time prednisone AdvReac Severe Anxiety Verified 05/06/18 13:53 muscle relaxers AdvReac Mild makes less Uncoded 05/06/18 13:53 relaxed PMH/Surg Hx/FS Hx/Imm Hx Endocrine/Hematology History: Reports: Hx Thyroid Disease Denies: Hx Diabetes Cardiovascular History: Reports: Hx Coronary Artery Disease, Hx Hypercholesterolemia, Hx Valvular Heart Disease - Tricuspid, mitral Denies: Hx Hypertension, Hx Pacemaker/ICD Respiratory History: Reports: Hx Asthma - new dx 04/2013, Hx Sleep Apnea - REFUSES TO USE MACHINE, Other Respiratory Problems/Disorders - ex-smoker, dyspnea Denies: Hx Chronic Obstructive Pulmonary Disease (COPD) GI History: Reports: Hx Gastroesophageal Reflux Disease - ON MEDICATION FOR, Hx Irritable Bowel Denies: Hx Ulcer History: Reports: Hx Benign Prostatic Hyperplasia Denies: Hx Kidney Stones Musculoskeletal History: Reports: Hx Arthritis - NECK Denies: Hx Rheumatoid Arthritis, Hx Osteoporosis Sensory History: Reports: Hx Cataracts, Hx Contacts or Glasses - READING Denies: Hx Hearing Aid Opthamlomology History: Reports: Hx Cataracts, Hx Contacts or Glasses - READING Neurological History: Reports: Hx Dementia Denies: Other Neuro Impairments/Disorders Psychiatric History: Reports: Hx Anxiety - NO MEDICATION FOR, Hx Depression - NO MEDICATION FOR Denies: Hx Eating Disorder, Hx Panic Disorder, Hx of Violent Episodes Against Others - Surgical History Surgery Procedure, Year, and Place: appendectomy, tonsilectomy "Years Ago". right ankle SURGERY Hx Anesthesia Reactions: No Infectious Disease History: Reports: Hx Shingles Denies: Hx Clostridium Difficile, Hx Hepatitis, Hx Human Immunodeficiency Virus (HIV), Hx of Known/Suspected MRSA, Hx Tuberculosis, Hx Known/Suspected VRE , Hx Known/Suspected VRSA, History Other Infectious Disease - Family History Known Family History: Positive: Hypertension - Social History Alcohol Use: Daily Alcohol Amount: WINE WITH DINNER Hx Substance Use: No Substance Use Type: Reports: None Hx Tobacco Use: No Smoking Status (MU): Former Smoker Amount Used/How Often: VERY SHORT PERIOD OF TIME Review of Systems Negative: Chest Pain Positive: Shortness Of Breath, Cough Positive: Other - cyanosis Neurological: Other - AMS that is transient All Other Systems Reviewed And Are Negative: Yes Physical Exam - Summary Physical Exam Summary: Appearance: Well appearing, no pain distress Skin: cyanosis in both fingers Head/face: normal Eyes: EOMI, NOE ENT: mucous membranes moist Neck: supple, non-tender. No JVD Respiratory: fine crackles in the left base Cardiovascular: RRR, pulses symmetrical Abdomen: non-tender, soft Bowel Sounds: present Musculoskeletal: normal, strength/ROM intact Neuro: normal, sensory motor intact, A&Ox3 Triage Information Reviewed: Yes Vital Signs Reviewed: Yes Diagnostics - Laboratory Result Diagrams: 05/06/18 15:40 05/06/18 15:40 Lab Statement: Any lab studies that have been ordered have been reviewed, and results considered in the medical decision making process. - Radiology CXR Radiology Interpretation Completed By: Radiologist Summary of Radiographic Findings: NO ACTIVE CARDIOPULMONARY DISEASE IS NOTED. ED physician has reviewed this radiology report. - EKG 1518 Cardiac Rate: NL EKG Rhythm: Sinus Rhythm - at 60 BPM Summary of EKG Findings: low voltage, nml axis, nml ST Re-Evaluation - Re-Evaluation First Eval Re-Evaluation Time: 15:49 Change: Improved Comment: The blue coloring wiped off the patients hands and was ink from a news paper. Course/Dx - Course Course Of Treatment: Nurse's notes reviewed. Patient presents by ambulance with bradycardia and cyanosis without observed hypoxia by EMS. Patient does have some congestion and cough but it is really comfortable appearing. He was maintained on 1-2 L of oxygen. ABG shows he is not acidemic nor is he CO2 retaining. He is given breathing treatments and a low doses steroids given that he does not do well with this. He was also loaded on antibiotics. As for his cyanosis, the patient had been reading the near times and has newsprint discoloring his hands. This was cleaned off with ChloraPrep. He was much more comfortable and we never saw any bradycardia after he had been given atropine by EMS. Vision does have a history of bradycardia in the past and this may been exacerbated by vagal event from his coughing. The patient was offered admission but he and his declined. He is discharged in improved condition. - Diagnoses Differential Diagnosis/HQI/PQRI: Positive: Asthma, Bronchitis, CHF, COPD Exacerbation, AK, Pneumonia, Pneumothorax, Pulmonary Embolism, Pulmonary Edema Provider Diagnoses: COPD exacerbation, Bradycardia Discharge - Sign-Out/Discharge Documenting (check all that apply): Patient Departure - Discharge Plan Condition: Improved Disposition: HOME Prescriptions: Azithromycin TAB* [Zithromax TAB (Z-VIRAL) 250 mg #6 tabs] 250 mg PO DAILY #4 tab Dexamethasone TAB* [Decadron TAB*] 2 mg PO DAILY #3 tab guaiFENesin [Mucinex] 600 mg PO BID #12 tab.er.12h Patient Education Materials: COPD (Chronic Obstructive Pulmonary Disease) (ED) , Bradycardia (ED) Referrals: Naun Hill MD [Primary Care Provider] - Additional Instructions: User breathing treatments every 4 hours until well. Return with difficulty breathing, fever, weakness, passing out, new symptoms or other concerns as discussed. Call your doctor first thing in the morning to schedule prompt follow-up. - Billing Disposition and Condition Condition: IMPROVED Disposition: Home - Attestation Statements Document Initiated by Scribe: Yes Documenting Scribe: Jasmeet Asher Provider For Whom Scribe is Documenting (Include Credential): Jacob Durán MD Scribe Attestation: Jasmeet Cuevas , scribed for Jacob Durán MD on 12/23/18 at 1840. Scribe Documentation Reviewed: Yes Provider Attestation: The documentation as recorded by the vita, Jasmeet Asher accurately reflects the service I personally performed and the decisions made by me, Jacob Durán MD Status of Vita Document: Viewed
[2018-05-06 15:55] LABS: ABS Basophils 0 10^3/ul (0-0.2); ABS Eosinophils 0.2 10^3/ul (0-0.6); ABS Lymphocytes 1.9 10^3/ul (1.0-4.8); ABS Monocytes 0.3 10^3/ul (0-0.8); ABS Nucleated RBC 0 10^3/ul; Eosinophil % 3.4 %; Hematocrit 39 % (42-52); Hemoglobin 12.8 g/dl (14.0-18.0); Lymphocyte % 34.8 %; Mean Corpuscular HGB Conc 33 g/dl (31-36); Mean Corpuscular Hemoglobin 31 pg (27-31); Mean Corpuscular Volume 94 fL (80-94); Mean Platelet Volume 8.4 fL (7.4-10.4); Nucleated Red Blood Cells % 0; Platelet Count 187 10^3/ul (150-450); Red Blood Count 4.19 10^6/ul (4.00-5.40); Red Cell Distribution Width 15 % (10.5-15); White Blood Count 5.5 10^3/ul (3.5-10.8)
[2018-05-06 16:14] LABS: INR 0.94 (0.77-1.02)
[2018-05-06 16:19] LABS: ALT 8 U/L (7-52); AST 18 U/L (13-39); Albumin 3.6 g/dL (3.2-5.2); Albumin/Globulin Ratio 1.2 (1-3); Alkaline Phosphatase 52 U/L (34-104); Anion Gap 4 mmol/L (2-11); BUN/Creatinine Ratio 17.1 (8-20); Blood Urea Nitrogen 24 mg/dL (6-24); C Reactive Protein < 1.00 mg/L (<8.01); CO2 Carbon Dioxide 25 mmol/L (22-32); Calcium 8.7 mg/dL (8.6-10.3); Chloride 106 mmol/L (101-111); Creatine Kinase 77 U/L (10-223); EGFR Non-African American 47.7 (>60); Glucose 87 mg/dL (70-100); Potassium 4.3 mmol/L (3.5-5.0); Sodium 135 mmol/L (135-145); Total Protein 6.6 g/dL (6.4-8.9)
[2018-05-06] MEDS ORDERED: Dexamethasone IV* 4 MG/ML 1 ML (4 MG) IV SLOW PU ONE (16:45)
[2018-05-06] MEDS ORDERED: Azithromycin TAB* 250 MG PO ONE (16:46)
[2018-05-06 17:24] VITALS: BP 147/85
[2018-05-06] MEDS ORDERED: Dexamethasone TAB* 4 MG ONE (17:28)
--- NOTE | 2018-05-07 16:07 | ED ---
Progress - Progress Note Progress Note: Patient presents to the ED from convenient care with shortness of breath and an episode of bradycardia. His preliminary aerobic culture bottle finding reveals gram-positive cocci resembling staph. PCR final reveals MRSA negative and staph aureus negative. Anaerobic culture bottle still pending. Confirmed no further updates from lab. Patient's vital signs and lab tests do not indicate sepsis. Will wait for more results before contacting patient is needed. Re-Evaluation - Re-Evaluation First Eval Re-Evaluation Time: 15:49 Change: Improved Comment: The blue coloring wiped off the patients hands and was ink from a news paper. Course/Dx - Course Course Of Treatment: Nurse's notes reviewed. Patient presents by ambulance with bradycardia and cyanosis without observed hypoxia by EMS. Patient does have some congestion and cough but it is really comfortable appearing. He was maintained on 1-2 L of oxygen. ABG shows he is not acidemic nor is he CO2 retaining. He is given breathing treatments and a low doses steroids given that he does not do well with this. He was also loaded on antibiotics. As for his cyanosis, the patient had been reading the near times and has newsprint discoloring his hands. This was cleaned off with ChloraPrep. He was much more comfortable and we never saw any bradycardia after he had been given atropine by EMS. [facility] does have a history of bradycardia in the past and this may been exacerbated by vagal event from his coughing. The patient was offered admission but he and his declined. He is discharged in improved condition. - Diagnoses Provider Diagnoses: COPD exacerbation, Bradycardia Discharge - Sign-Out/Discharge Documenting (check all that apply): Post-Discharge Follow Up - Discharge Plan Condition: Improved Disposition: HOME Prescriptions: Azithromycin TAB* [Zithromax TAB (Z-VIRAL) 250 mg #6 tabs] 250 mg PO DAILY #4 tab Dexamethasone TAB* [Decadron TAB*] 2 mg PO DAILY #3 tab guaiFENesin [Mucinex] 600 mg PO BID #12 tab.er.12h Patient Education Materials: COPD (Chronic Obstructive Pulmonary Disease) (ED) , Bradycardia (ED) Referrals: Naun Hill MD [Primary Care Provider] - Additional Instructions: User breathing treatments every 4 hours until well. Return with difficulty breathing, fever, weakness, passing out, new symptoms or other concerns as discussed. Call your doctor first thing in the morning to schedule prompt follow-up. - Billing Disposition and Condition Condition: IMPROVED Disposition: Home
[2018-05-07] MEDS ORDERED: Dexamethasone TAB* 6 MG PO ONE (17:31)
--- NOTE | 2018-05-09 06:10 | ED ---
Progress - Progress Note Progress Note: Patient presents to the ED from convenient care with shortness of breath and an episode of bradycardia. His preliminary aerobic culture bottle finding reveals gram-positive cocci resembling staph. PCR final reveals MRSA negative and staph aureus negative. Anaerobic culture bottle still pending. Confirmed no further updates from lab. Patient's vital signs and lab tests do not indicate sepsis. Will wait for more results before contacting patient is needed. UPDATE: Patient's aerobic cultures have revealed Staphylococcus hominis and Staphylococcus epidermidis both of which could be contaminants. Anaerobic culture no growth after 2 days. Spoke w/ pt who reports he's "feeling alot better" this afternoon - felt so good he almost went to fitness center this morning but decided to wait. Denies SOB, chest pain, fatigue, fever, chills, aches/pain. Advised that if he feels worse, to return to the ED. Pt voices understanding and agrees w/ plan. Re-Evaluation - Re-Evaluation First Eval Re-Evaluation Time: 15:49 Change: Improved Comment: The blue coloring wiped off the patients hands and was ink from a news paper. Course/Dx - Course Course Of Treatment: Nurse's notes reviewed. Patient presents by ambulance with bradycardia and cyanosis without observed hypoxia by EMS. Patient does have some congestion and cough but it is really comfortable appearing. He was maintained on 1-2 L of oxygen. ABG shows he is not acidemic nor is he CO2 retaining. He is given breathing treatments and a low doses steroids given that he does not do well with this. He was also loaded on antibiotics. As for his cyanosis, the patient had been reading the near times and has newsprint discoloring his hands. This was cleaned off with ChloraPrep. He was much more comfortable and we never saw any bradycardia after he had been given atropine by EMS. [facility] does have a history of bradycardia in the past and this may been exacerbated by vagal event from his coughing. The patient was offered admission but he and his declined. He is discharged in improved condition. - Diagnoses Provider Diagnoses: COPD exacerbation, Bradycardia Discharge - Sign-Out/Discharge Documenting (check all that apply): Post-Discharge Follow Up - Discharge Plan Condition: Improved Disposition: HOME Prescriptions: Azithromycin TAB* [Zithromax TAB (Z-VIRAL) 250 mg #6 tabs] 250 mg PO DAILY #4 tab Dexamethasone TAB* [Decadron TAB*] 2 mg PO DAILY #3 tab guaiFENesin [Mucinex] 600 mg PO BID #12 tab.er.12h Patient Education Materials: COPD (Chronic Obstructive Pulmonary Disease) (ED) , Bradycardia (ED) Referrals: Naun Hill MD [Primary Care Provider] - Additional Instructions: User breathing treatments every 4 hours until well. Return with difficulty breathing, fever, weakness, passing out, new symptoms or other concerns as discussed. Call your doctor first thing in the morning to schedule prompt follow-up. - Billing Disposition and Condition Condition: IMPROVED Disposition: Home
== END 2018-05-06 17:21 | disposition home or self-care (01) ==
LOC: ED 15:01
DX: J44.1 Chronic obstructive pulmonary disease with (acute) exacerbation (principal); R00.1 Bradycardia, unspecified; I25.10 Atherosclerotic heart disease of native coronary artery without angina pectoris; E78.00 Pure hypercholesterolemia, unspecified; I08.1 Rheumatic disorders of both mitral and tricuspid valves; J44.9 Chronic obstructive pulmonary disease, unspecified; Z87.891 Personal history of nicotine dependence
CPT/HCPCS: 36415; 71045; 80053; 82550; 82803; 83605; 83880; 84484; 85025; 85379; 85610; 86140; 87040; 87077; 87150; 87205; 93005; 96374; 99283; A9270-GY; J8540

== ENCOUNTER 2018-07-24 12:03 | Emergency (ER) | payer MEDICARE ==
--- OUTSIDE RECORDS SUMMARY | 2018-07-24 12:16 | XMS REPORT | Continuity of Care Document ---
:1930 External Reference #:[id number] Author Name Grady Brewer M.D. 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 Primary Care Physician Unavailable Payers Date Identification Numbers Payment Provider Subscriber Policy Number: [id number] [facility] Ace Valverde Sr Group Number: [id number] [address] [address] PayID: [id number] [place] [address] Advance Directives Description No Information Available Problems Date Description Provider Status Onset: 10/25/2013 Difficulty speaking Grady Brewer M.D. Active Onset: 10/25/2013 Chronic bronchitis Grady Brewer M.D. Active Onset: 12/10/2013 Cough Grady Brewer M.D. Active Onset: 12/10/2013 Chronic sinusitis Grady Brewer M.D. Active Onset: 02/25/2014 Gastroesophageal reflux disease Grady Brewer M.D. Active Onset: 06/03/2014 Disorder of oral soft tissues Grady Brewer M.D. 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 Tobacco Use Start: Unknown has never smoked cigars Tobacco Use Start: Unknown has never smoked a pipe Smokeless Tobacco has never used smokeless tobacco ETOH Use Current Alcohol Use [Current Alcohol Use] ETOH Use Currently consumes 1 glasses of wine weekly Tobacco Use Start: Unknown Patient has never smoked Smoking Status Reviewed: 07/16/18 Patient has never smoked Allergies, Adverse Reactions, Alerts Date Description Reaction Status Severity Comments 12/19/2017 Prednisone anger Active 07/26/2004 NKDA Inactive Medications Medication Date Status Form Strength Qnty SIG Indications Ordering Provider Azithromycin 07/17 Active Tablets 250mg 6tabs take 2 J45.40 Grady N. pills on Strominge the first r, M.D. day, then 1 for the next 4 days. Advair HFA 12/19 Active Aerosol 115-21mcg 36gm inhale 2 J45.40 Grady N. /2018 /Act puffs Strominge twice a r, M.D. day with spacer Proair HFA 10/26 Active Aerosol 108(90Bas 25.5g 2 puffs J45.40 Grady N. /2016 e) m every 4 Strominge mcg/Act hours as r, M.D. needed for shortness of breath, tighness and wheezing Quetiapine Active 25mg 2 po QHS [place], Fumarate /0000 Tawanda Gupta M.D. Gabapentin Active 200mg 1 po tid [place], /0000 Tawanda Gupta M.D. Levothyroxine Active Tablets 25mcg 1 po qd [place], Sodium /0000 Tawanda Gupta M.D. Fluticasone Active Suspension 50mcg/Act 3unit 2 sprays Grady N. Propionate /0000 s in each Strominge nostril r, M.D. everyday [place] Zest Active 1 po bid Self /0000 Levothyroxine Active Tablets 50mcg Shelby PRODUCTION BROACHER, Sodium /0000 Jose Roberto Azithromycin 07/10 Hx Tablets 250mg 6tabs take 2 Grady N. pills on Strominge - the first r, M.D. 07/16 day, then 1 for the next 4 days. Amoxicillin/Clavu 04/10 Hx Tablets 875-125mg 20tab 1 pill Grady N. lanate Potassium /2017 s twice a Strominge - day for 10 r, M.D. 07/09 days. Amoxicillin/Clavu 01/24 Hx Tablets 875-125mg 20tab 1 by mouth J18.9 Grady N. lanate Potassium /2018 s twice a Strominge - day wit r, M.D. 04/10 /2017 Azithromycin 01/18 Hx Tablets 500mg 5tabs 1 by mouth Ruraffi every day , Ben HUTCHISON - for 5 days 01/24 Azithromycin 05/23 Hx Tablets 250mg 6tabs 500 mg by [email or web address] Grady Fields mouth day Strominge - one, tyler hernandez M.D. 12/18 250 mg by /2017 mouth day 2 through 5 Methylprednisolon 05/23 Hx TBPK 4mg 1pack take as Grady Fields directed Stromheath - Treva hernandez 12/18 Azithromycin 01/03 Hx Tablets 250mg 6tabs 500 mg by [email or web address] [place] mouth day Strominge - one then Treva hernandez 02/28 250 mg by /2016 mouth day 2 through 5 Ranitidine 12/06 Hx 150mg 180un 1 by mouth K21.9 [place] Fields its two times Strominge - per day Treva hernandez 12/06 Ranitidine HCL 12/06 Hx Capsules 150mg 180ca 1 by mouth K21.9 [place] Fields ps twice a Strominge - day Treva hernandez 03/21 Clotrimazole/Beta 12/06 Hx Cream 1-0.05% 45gm apply to K13.0 Diamond methasone lips two Strominge Dipropionate - times per Treva hernandez 12/19 day healed Advair HFA 10/26 Hx Aerosol 230-21mcg 36gm 2 puff J45.40 [place] Fields /Act twice a Strominge - day with Treva hernandez 04/10 Omeprazole 10/[address] 40mg 90cap 1 by mouth K21.9 [place] Fields s daily upon Strominge - awakening Treva hernandez 12/06 Zithromax Z-Biju 05/13 Hx Tablets 250mg 2tabs 1 pack as 786.2 Grady Fields directed Strominge - then wait Treva hernandez 09/03 5 days /2014 take second pack Ipratropium 12/24 Hx Solution 0.06% 1unit spray in 786.2 Grady Fields s each Strominge - nostril 3 Treva hernandez 09/15 times a day Symbicort 10/25 Hx Aerosol 160-4.5mc 1unit 2 puffs 2x 784.42 parelia g/Act s a day with Ben MD - spacer 01/27 Spacer For Use 10/25 Hx 784.42 [place] With Symbicort. Darrion hernandez M.D. 01/27 Prednisone 11/23 Hx Tablets 20mg 5days 3 tabs qd 461.0 Grady Cortes. Darrion hernandez M.D. 02/12 Levaquin 11/23 Hx Tablets 750mg 14Day 1 PO qd 461.0 [place] s Darrion hernandez M.D. 02/12 Tessalon Perles 11/23 Hx Capsules 100mg 30cap 1-2 po tid 461.0 [place] s Darrion hernandez M.D. 05/18 Advair HFA 09/18 Hx 115/21 1unit 2 puff bid [place] Fields s Prior To Darrion - Brushing Treva hernandez 05/18 Albuterol 07/17 Hx Aerosol 90mcg/Dos 2unit 2 Puffs Grady Fields Inhalation e s Q4H prn Darrion hernandez M.D. 05/18 Zithromax Z-Biju 06/06 Hx Tablets 250mg 1tabs 1 pack as 483.0 Grady Diamond davie hernandez M.D. 07/12 Zithromax Z-Biju 05/04 Hx Tablets 250mg 1tabs take as [place] davie hernandez M.D. 06/05 Tessalon 05/04 Hx Perles 100mg 30day 1 po tid [place] Fields s prn cough Darrion hernandez M.D. 06/05 Medrol Dose Biju 03/20 Hx Tablets 4mg 1tabs take as Terrell Francisco Clay MD 04/13 Levaquin 30 Hx Tablets 500mg 10tab 1 tablet 461.2 [place] Fields s by mouth Darrion hernandez M.D. 07/20 finished Medrol Dose Biju 03/13 Hx Tablets 4mg 1tabs take as 461.2 Terrell /2005 directed Francisco Garcia MD 04/13 Zithromax Z-Biju 07/14 Hx Tablets 250mg 1tabs 1 pack as [place] /2005 directed Darrion hernandez M.D. 03/13 Prednisone 03/10 Hx Tablets 20mg 5Days 3 po qd 462 [place] with food Darrion hernandez M.D. 05/18 Tequin 11/30 Hx Tablets 400mg 10tab 1 po qd 461.0 [place] /2004 s Darrion hernandez M.D. 03/10 Medrol Dose Biju 11/30 Hx Tablets 4mg 1tabs 1 Pack as 461.0 [place] Directed Darrion hernandez M.D. 03/10 Zithromax Z-Biju 11/24 Hx Tablets 250mg 1tabs 1 Pack as [place] Directed Darrion hernandez M.D. 11/30 Zithromax Tri-Biju 09/06 Hx Tablets 500mg 1tabs 1 for 3 461.2 Yaakov /2004 days JJosé Luis - William, 11/30 M.D. Nasacort Aq 09/06 Hx Suspension 55mcg/Act 1unit 2 sprays 461.2 Yaakov Intranasal [place] /2004 uation s each J. - nostril qd William, 03/13 M.D. Nasacort Aq 07/26 Hx Suspension 55mcg/Act 1unit 2 sprays Terrell Intranasal [place] /2004 uation s each Rayne Moran - nostril jayme HUTCHISON 07/12 Michelle 06/30 Hx Tablets 180mg 30tab 1 po qd [place] s Darrion hernandez M.D. 05/18 Fluvoxamine 00/ Hx Tablets 25mg Unknown / - 05/18 Clonazepam / Hx Tablets 0.5mg Unknown / - 05/18 Hytrin Hx Capsules 1mg Unknown / - 05/18 Avodart Hx Capsules 0.5mg 1 po qd Liz, Tawanda Singh M.D. 10/26 Nasacort Aq 00 Hx Unknown /0000 - 02/25 Zyrtec Allergy Hx Unknown /0000 - 02/25 Risperidone Hx 0.25mg 1 po QHS [place], / Tawanda Singh M.D. 02/25 Sertraline HCL Hx 100mg 1 po daily [place], /0000 Tawanda Singh M.D. 09/15 Donepezil HCL Hx 10mg 1 po daily [place], / Tawanda Singh M.D. 09/15 Namenda Hx 10mg 1 po daily [place], /0000 Tawanda Singh M.D. 09/15 Montelukast Hx 10mg 1 po daily [place], Sodium / Tawanda Singh M.D. 02/25 Spiriva Hx 18mcg 1 cap [place], Handihaler /0000 daily Tawanda Singh M.D. 01/27 Benzonatate Hx Capsules 200mg 90cap 1 take by [place], / s mouth Tawanda galeas 3 Treva 10/26 times day for cough Omeprazole Hx Capsules DR 40mg 60cap 1 2 hours 786.2 [place], /0000 s after Tawanda macdonald M.D. 10/26 Prednisone Hx Tablets 20mg [place], /0000 Andrew Singh M.D. 01/03 Amoxicillin/Clavu Hx Tablets 875-125mg Take One Unknown lanate Potassium /0000 Tablet By - Mouth 01/03 Twice A Day Medications Administered in Office Medication Date Status Form Strength Qnty SIG Indications Ordering Provider Allergen Administered Injection Yaakov Gifford IgE 997 Terva Thomas Immunizations CPT Code Status Date Vaccine Lot # 88986 Given Unknown Prevnar 13 For Intramuscular Use 67987 Given Unknown Influenza Virus Vaccine, 3 Years Of Age And Above, Intramuscular Vital Signs Date Vital Result Comment 07/17/2018 1:51pm Weight 162.00 lb Weight 73.483 kg Height 68.75 inches 5'8.75" Height in cm's 174.6 cm BMI (Body Mass Index) 24.1 kg/m2 07/10/2018 1:50pm Weight 162.00 lb Weight 73.483 kg Height 68.75 inches 5'8.75" Height in cm's 174.6 cm BMI (Body Mass Index) 24.1 kg/m2 04/10/2018 10:32am Weight 162.00 lb Weight 73.483 kg Height 68.75 inches 5'8.75" Height in cm's 174.6 cm BMI (Body Mass Index) 24.1 kg/m2 01/24/2018 3:03pm Weight 172.00 lb Weight 78.019 kg Height 68.75 inches 5'8.75" Height in cm's 174.6 cm BMI (Body Mass Index) 25.6 kg/m2 12/19/2017 9:05am Weight 172.00 lb Weight 78.019 kg Height 68.75 inches 5'8.75" Height in cm's 174.6 cm BMI (Body Mass Index) 25.6 kg/m2 03/21/2017 10:26am BP Systolic 144 mmHg BP Diastolic 90 mmHg Heart Rate 66 /min Respiratory Rate 17 /min Weight 168.00 lb Weight 76.205 kg Height 68.75 inches 5'8.75" Height in cm's 174.6 cm BMI (Body Mass Index) 25.0 kg/m2 02/28/2017 10:47am BP Systolic 101 mmHg BP Diastolic 65 mmHg Heart Rate 73 /min Respiratory Rate 17 /min Weight 168.00 lb Weight 76.205 kg Height 68.75 inches 5'8.75" Height in cm's 174.6 cm BMI (Body Mass Index) 25.0 kg/m2 01/03/2017 2:35pm BP Systolic 134 mmHg BP Diastolic 76 mmHg Weight 168.00 lb Weight 76.205 kg Height 68.75 inches 5'8.75" Height in cm's 174.6 cm BMI (Body Mass Index) 25.0 kg/m2 12/06/2016 10:13am BP Systolic 126 mmHg BP Diastolic 88 mmHg Heart Rate 71 /min Respiratory Rate 17 /min Weight 168.00 lb Weight 76.205 kg Height 68.75 inches 5'8.75" Height in cm's 174.6 cm BMI (Body Mass Index) 25.0 kg/m2 10/26/2016 9:33am BP Systolic 145 mmHg BP Diastolic 93 mmHg Heart Rate 65 /min Respiratory Rate 17 /min Weight 165.00 lb Weight 74.844 kg Height 68.75 inches 5'8.75" Height in cm's 174.6 cm BMI (Body Mass Index) 24.5 kg/m2 09/16/2014 8:48am BP Systolic 93 mmHg BP Diastolic 68 mmHg Heart Rate 62 /min Respiratory Rate 17 /min Weight 174.00 lb Weight 78.926 kg Height 68.75 inches 5'8.75" Height in cm's 174.6 cm BMI (Body Mass Index) 25.9 kg/m2 06/03/2014 10:34am BP Systolic 104 mmHg BP Diastolic 74 mmHg Heart Rate 70 /min Respiratory Rate 17 /min Weight 174.00 lb Weight 78.926 kg Height 68.75 inches 5'8.75" Height in cm's 174.6 cm BMI (Body Mass Index) 25.9 kg/m2 05/13/2014 11:32am BP Systolic 123 mmHg BP Diastolic 74 mmHg Heart Rate 87 /min Respiratory Rate 17 /min Weight 174.00 lb Weight 78.926 kg Height 68.75 inches 5'8.75" Height in cm's 174.6 cm BMI (Body Mass Index) 25.9 kg/m2 02/25/2014 10:58am BP Systolic 117 mmHg BP Diastolic 93 mmHg Heart Rate 80 /min Respiratory Rate 17 /min Weight 174.00 lb Weight 78.926 kg Height 68.75 inches 5'8.75" Height in cm's 174.6 cm BMI (Body Mass Index) 25.9 kg/m2 01/27/2014 10:28am BP Systolic 103 mmHg BP Diastolic 65 mmHg Heart Rate 74 /min Respiratory Rate 17 /min Weight 174.00 lb Weight 78.926 kg Height 68.75 inches 5'8.75" Height in cm's 174.6 cm BMI (Body Mass Index) 25.9 kg/m2 12/24/2013 11:24am BP Systolic 94 mmHg BP Diastolic 69 mmHg Heart Rate 79 /min Respiratory Rate 16 /min Weight 174.00 lb Weight 78.926 kg Height 68.75 inches 5'8.75" Height in cm's 174.6 cm BMI (Body Mass Index) 25.9 kg/m2 12/10/2013 2:24pm BP Systolic 118 mmHg BP Diastolic 70 mmHg Heart Rate 56 /min Respiratory Rate 16 /min Weight 174.00 lb Weight 78.926 kg Height 68.75 inches 5'8.75" Height in cm's 174.6 cm BMI (Body Mass Index) 25.9 kg/m2 10/25/2013 1:24pm BP Systolic 140 mmHg BP Diastolic 100 mmHg Heart Rate 65 /min Respiratory Rate 17 /min Weight 174.00 lb Weight 78.926 kg Height 68.75 inches 5'8.75" Height in cm's 174.6 cm BMI (Body Mass Index) 25.9 kg/m2 05/18/2010 3:29pm BP Systolic 125 mmHg BP Diastolic 77 mmHg Heart Rate 66 /min Respiratory Rate 16 /min 04/13/2006 9:30am BP Systolic 91 mmHg BP Diastolic 48 mmHg Heart Rate 61 /min Respiratory Rate 16 /min Results Test Date Facility Test Result H/L Range Note Laboratory test 06/17/2014 [facility] Glucose 99 mg/ dL N 70-100 finding c/o Department of Laboratories [place], [place] [id number] [phone] Blood Urea Nitrogen 27 mg/dL High 6-24 Creatinine 06/17/2014 [facility] Creatinine 1.95 mg/ dL High 0.67-1.17 c/o Department of Laboratories [place], [place] [id number] [phone] Egfr Non- 32.9 N >60 Egfr 42.3 N >60 1 Laboratory test 06/17/2014 [facility] Triglycerides 121 mg/dL N 2 finding c/o Department of Laboratories [place], [place] [id number] [phone] Cholesterol 181 mg/dL N 3 T4 5.50 g/dL Low 6.09-12.23 Total T3 0.93 ng/mL N 0.87-1.78 TSH (Thyroid Stimulating Horm) 6.44 IU/mL High 0.34-5.60 Erythrocyte Sed Rate 21 mm/Hr N 0-40 Hemoglobin A1c 6.4 % High Less than 6.0 4 Syphilis 06/17/2014 [facility] Syphilis IgG Nonreactive N Nonreactive 5 Screen c/o Department of Laboratories [place], [place] [id number] [phone] RPR TNP N Nonreactive RPR Titer TNP N Pediatric/Maternal NO N Laboratory 06/17/2014 [facility] Aislinn Reflexed Abnormal Negative test finding c/o Department of Laboratories ([place] [address] AB) Screen [phone] Fta-Abs Negative N Negative 6 H Pylori Iga 06/17/2014 [facility] Helicobacter Negative N Negative c/o Department [place] [address] [phone] H pylori IgA Ab Index 5.97 N 7 H.Pylori Igg 06/17/2014 [facility] Helicobacter Positive N Negative 8 AB c/o Department [place] [address] [phone] H pylori IgG AB Index 9.83 N 9 H.Pylori Igm 06/17/2014 [facility] Helicobacter Negative N Negative AB c/o Department [place] [address] [phone] H pylori IgM AB Index 19.90 N 10 Laboratory test 06/17/2014 [facility] Lyme Disease Negative N Negative 11 finding c/o Department [place] [address] [phone] Rheumatoid Factor <15 IU/mL N <15 12 [place] Hep-2 06/17/2014 [facility] [place] Pattern Negative N Negative 13 c/o [place] [address] [phone] [place] Reviewed By MD Parker Osegueraovsk <SEE NOTE> N 14 1 Because ethnic data is not always readily available, this report includes an eGFR for both -Americans and non- Americans. The National Kidney Disease Education Program (NKDEP) does not endorse the use of the MDRD equation for patients that are not between the ages of 18 and 70, are , have extremes of body size, muscle mass, or nutritional status, or are non- or non-. According to the National Kidney Foundation, irrespective of diagnosis, the stage of the disease is based on the level of kidney function: Stage Description GFR(mL/min/1.73 m(2)) 1 Kidney damage with normal or decreased GFR 90 2 Kidney damage with mild decrease in GFR 60-89 3 Moderate decrease in GFR 30-59 4 Severe decrease in GFR 15-29 5 Kidney failure <15 (or dialysis) 2 Desirable <150 Borderline high 150-199 High 200-499 Very High >500 3 Desirable <200 Borderline high 200-239 High >239 4 Therapeutic target for the treatment of diabetes Mellitus patients is <7% HBA1C, and in selective patients <6.0%.Please refer to [place] [employer] Diabetic care guidelines for further information. 5 Warning: A positive result is not useful for establishing a diagnosis of syphilis. In most situations, such a result may reflect a prior treated infection; a negative result can exclude a diagnosis of syphilis except for incubating or early primary disease. 6 No serologic evidence of exposure to syphilis. ADDITIONAL INFORMATION This test is intended to be used as a confirmatory test on samples that have been tested by another syphilis test. Test Performed by: [place] [address] Assistant Pressman: Tk Lr M.D. 7 Results with Index Values of <18.00 are negative. Test Performed by: [place] [address] Assistant Pressman: Tk Lr M.D. 8 The presence of IgG-class antibody to H. pylori may indicate current or past infection. A positive antibody result alone is not diagnostic for current H. pylori infection. Acute infection can be diagnosed using the H. pylori urea breath test or the H. pylori stool antigen test. 9 Results with Index Values of=>8.95 are positive. Test Performed by: [place] [address] Assistant Pressman: Tk Lr M.D. 10 Results with Index Values of <36.00 are negative. Test Performed by: [place] [address] Assistant Pressman: Tk Lr M.D. 11 Serologic response to B. burgdorferi infection is not detected, but cannot rule out early infection during which low or undetectable antibody levels to B. burgdorferi may be present. If clinically indicated, a new serum specimen should be submitted in 7-14 days. Test Performed by: [place] [address] Assistant Pressman: Tk Lr M.D. 12 Test Performed by: [facility] - [address] [address] Assistant Pressman: Tk Lr M.D. 13 A number of healthy individuals have positive antinuclear antibody (AISLINN) screen results, many of which are likely to be clinical false-positives; the Fluorescent Antibody test is a second-order test which has shown to have a negative discernible AISLINN pattern. 14 Parker Oseguerabrent Procedures Date Code Description Status 10/26/2016 28783 Demonstration/Eval. Of Patient Utilization Of Completed Spacer/Nebulizer 10/26/2016 61042 Inhalation Treatment Pressurized Or Nonpres.Acute Completed Airwy.Obstruct. 10/26/2016 99563 Fiberoptic Laryngoscopy Completed 05/13/2014 10662 Fiberoptic Laryngoscopy Completed 02/25/2014 41352 Fiberoptic Laryngoscopy Completed 01/27/2014 43123 Behavioral & Qualitative Analysis Of Voice & Resonance Completed 01/27/2014 84506 Videostroboscopy Completed 10/25/2013 14868 Spirometry Including Graphic Record, Total&Timed Vital Completed Capacity 10/25/2013 09187 Fiberoptic Laryngoscopy Completed 07/30/2009 53096 Pers Bal W/O Completed 03/05/2007 76489 Interest Income Completed 02/22/2007 05675 Prick Test Completed 02/22/2007 15489 Prick Test Completed 03/31/2003 25889 Comprehensive Audiogram Completed Encounters Type Date Location Provider Dx Diagnosis Office Visit 07/17/2018 [place],After Grady Andrade.40 Moderate persistent 1:45p 05/15/07 Treva Brewer asthma, uncomplicated J32.0 Chronic maxillary sinusitis Office Visit 07/10/2018 3:30p [place],Ranjit Harman45.Duong Moderate persistent 05/15/07 [place], PA-C asthma, uncomplicated J20.8 Acute bronchitis due to other specified organisms J01.80 Other acute sinusitis Office Visit 04/10/2018 10:15a [facility],After Marli Harman45.40 Moderate persistent 05/15/07 [place], PA-C asthma, uncomplicated J20.8 Acute bronchitis due to other specified organisms Office Visit 01/24/2018 [place],After Grady Harman18.9 Pneumonia, 3:15p 05/15/07 Treva Brewer unspecified organism Office Visit 12/19/2017 [place],After Grady Fields J45.40 Moderate 9:00a 05/15/07 Treva Brewer persistent asthma, uncomplicated Office Visit 03/21/2017 [place],[facility] [place] J45.52 Severe persistent 10:15a 05/15/07 Treva Brewer asthma with status asthmaticus Office Visit 02/28/2017 [place],[facility] [place] R05 Cough 10:45a 05/15/07 Treva Brewer J45.52 Severe persistent asthma with status asthmaticus K21.9 Gastro-esophageal reflux disease without esophagitis Office Visit 01/03/2017 2:45p [place],After [place] K13.0 Diseases of 05/15/07 Treva Brewer lips J01.90 Acute sinusitis, unspecified Office Visit 12/06/2016 [place],After [place] J45.52 Severe 10:30a 05/15/07 Treva Brewer persistent asthma with status asthmaticus K21.9 Gastro-esophageal reflux disease without esophagitis K13.0 Diseases of lips Office Visit 10/26/2016 [place],After [place] J45.52 Severe 9:30a 05/15/07 Treva Brewer persistent asthma with status asthmaticus K21.9 Gastro-esophageal reflux disease without esophagitis Office Visit 09/16/2014 [place],After [place] 784.42 Dysphonia, 8:45a 05/15/07 Treva Brewer Hoarseness 530.81 Reflux, Gastroesophageal Office Visit 06/03/2014 10:15a [place],After 05/15/07 Grady Brewer, 786.2 Cough M.D. 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 784.42 Dysphonia, Hoarseness Office Visit 12/10/2013 2:30p [place],After 05/15/07 Grady Brewer, 786.2 Cough M.D. 491.9 Bronchitis, Chronic/Unspecified 473.9 Sinusitis, Chronic/Unspecified Office Visit 10/25/2013 [place],After [place] 784.42 Dysphonia, 1:45p 05/15/07 Treva Brewer Hoarseness 491.9 Bronchitis, Chronic/Unspecified Office Visit 05/18/2010 [place],After [place] 466.0 Bronchitis, 3:15p 05/15/07 Treva Brewer Acute/Viral Office Visit 02/12/2007 [place],After [place] 477.8 Rhinitis, 10:45a 05/15/07 Treva Brewer Perennial, Allergy 477.0 Rhinitis, Seasonal -Allergic Due To Pollen Office Visit 11/23/2006 11:00a [place],After 05/15/07 [place], 461.0 Sinusitis, Acute Christine PRODUCTION BROACHER Maxillary 786.2 Cough 466.0 Bronchitis, Acute/Viral Office Visit 07/20/2006 [place],After [place] 464.00 Laryngitis, 11:00a 05/15/07 Treva Brewer Acute W/O Obstruction 461.0 Sinusitis, Acute Maxillary Office Visit 07/12/2006 [place],After Gr[place] Fields 461.0 Sinusitis, Acute 1:30p 05/15/07 Treva Brewer Maxillary 464.00 Laryngitis, Acute W/O Obstruction Office Visit 06/06/2006 [place],After [place] 483.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: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 Maxillary Office Visit 09/06/2004 [place],After Yaakov Casey 461.2 Sinusitis, Acute 4:00p 05/15/07 Treva Thomas Ethmoidal 461.0 Sinusitis, Acute Maxillary Office Visit 07/26/2004 2:45p [place],After 05/15/07 Yaakov Casey 462 Pharyngitis, Acute Treva Thomas 460 Rhinitis /Nasopharygitis Acute Office Visit 01/30/2004 11:30a [place],After 05/15/07 Yaakov Thomas, 784.7 Epistaxis Treva 473.2 Sinusitis, Chronic Ethmoidal 473.0 Sinusitis, Chronic Maxillary Office Visit 01/01/2004 2:00p [place],After 05/15/07 Yaakov Casey 473.2 Sinusitis, Treva Thomas Chronic Ethmoidal 466.0 Bronchitis, Acute/Viral Office Visit 09/24/2003 12:00p [place],After 05/15/07 Yaakov Casey 461.0 Sinusitis, Acute Treva Thomas Maxillary 461.2 Sinusitis, Acute Ethmoidal Office Visit 03/19/2003 11:30a [place],After 05/15/07 Yaakov Casey 477.0 Rhinitis, Treva Thomas Seasonal -Allergic Due To Pollen 380.4 Impacted Cerumen / Wax Plan of Treatment 07/17/2018 - Grady Brewer M.D.J45.40 Moderate persistent asthma, uncomplicatedNew Medication:Azithromycin 250 mg - take 2 pills on the first day , then 1 for the next 4 days.Comments:The patient returns today for his sinusitis. He has also had a couple of bouts of pneumonia and has been using nebulized Albuterol. He is feeling mostly better from the sinusitis but would like a second course of ABX. I also refilled the Advair and the Fluticasone.J32.0 Chronic maxillary sinusitis
--- OUTSIDE RECORDS SUMMARY | 2018-07-24 12:16 | XMS REPORT | Continuity of Care Document ---
:1930 External Reference #:[id number] Author Name Marli Clark PA-C Address [address] [place] [address] Care Team Providers Name Role Phone Bobby Chirinos MD Care Team Information Adaptive Physical Education Specialist Unavailable Tawanda Hill M.D. Primary Care Physician Unavailable Payers Date Identification Numbers Payment Provider Subscriber Policy Number: [id number] [facility] Ace Valverde Sr Group Number: [id number] [address] [address] PayID: [id number] [place] [address] Advance Directives Description No Information Available Problems [...] Patient has never smoked Smoking Status Reviewed: 07/10/18 Patient has never smoked Allergies, Adverse Reactions, Alerts Date Description Reaction Status Severity Comments 12/19/2017 Prednisone anger Active 07/26/2004 NKDA Inactive Medications Medication Date Status Form Strength Qnty SIG Indications Ordering Provider Azithromycin 07/10 Active Tablets 250mg 6tabs take 2 . pills on Strominge the first r, M.D. [...] wheezing Quetiapine Active 25mg 2 po QHS [place], Fumarate /0000 Tawanda Gupta M.D. Gabapentin Active 200mg 1 po tid [place], /0000 Tawanda Gupta M.D. Levothyroxine Active Tablets 25mcg 1 po qd [place], Sodium /0000 Tawanda Gupta M.D. Fluticasone Active Suspension 50mcg/Act Unknown Propionate / [place] Zest Active 1 po bid Self /0000 Levothyroxine Active Tablets 50mcg Shelby LEISURE STUDIES PROFESSOR, Sodium /0000 Jose Roberto Amoxicillin/Clavu 04/10 Hx Tablets 875-125mg 20tab 1 pill [place] lanate Potassium /2017 s twice a [place] - day for 10 r, M.D. . Amoxicillin/Clavu 01/24 Hx Tablets 875-125mg 20tab 1 by mouth J18.9 Grady N. lanate Potassium /2017 s twice a [place] - day andre hernandez M.D. 04/10 Azithromycin 01/18 Hx Tablets 500mg 5tabs 1 by mouth Ruparelia /2017 every day , Ben HUTCHISON - for 5 days 01/24 Azithromycin 05/23 Hx Tablets 250mg 6tabs 500 mg by J01.90 [place] N. /2017 mouth day [place]rominge - one, then david MGeri 12/18 250 mg by /2018 mouth day 2 through 5 Methylprednisolon 05/23 Hx TBPK 4mg 1pack take as [place] e directed St[place] - Treva hernandez 12/18 Azithromycin 01/03 Hx Tablets 250mg 6tabs 500 mg by J01.90 [place] mouth day [place]rom[place] - one, then Treva hernandez 02/28 250 mg by mouth day 2 through 5 Ranitidine 12/06 Hx 150mg 180un 1 by mouth K21.9 [place] its two times [place] - per day rTreva 12/06 Ranitidine HCL 12/06 Hx Capsules 150mg 180ca 1 by mouth K21.9 [place] ps twice a [place] - day Treva hernandez 03/21 Clotrimazole/Beta 12/06 Hx Cream 1-0.05% 45gm apply to K13.0 [place] methasone lips two [place] Dipropionate - times per Treva hernandez 12/19 day until healed Advair HFA 10/26 Hx Aerosol 230-21mcg 36gm 2 puff J45.40 [place] /Act twice a [place] - day with Treva hernandez 04/10 Omeprazole 10/[address] 40mg 90cap 1 by mouth K21.9 Grady NJosé Luis s daily upon [place]rominge - awakening Treva hernandez 12/06 Zithromax Z-Biju 05/13 Hx Tablets 250mg 2tabs 1 pack as 786.2 [place] directed [place]rom[place] - then wait rTreva 09/03 5 days and /2014 take second pack Ipratropium 12/24 Hx Solution 0.06% 1unit spray in 786.2 [place] s each Strominge - nostril 3 Treva hernandez 09/15 times a /2014 day Symbicort 10/25 Hx Aerosol 160-4.5mc 1unit 2 puffs 2x 784.42 [place]lia g/Act s a day with Ben MD - spacer 01/27 Spacer For Use 10/25 Hx 784.42 [place] With Symbicort. /2013 [place]rominge - rTreva 01/27 Prednisone 11/23 Hx Tablets 20mg 5days 3 tabs qd 461.0 [place]es. Darrion hernandez M.D. 02/12 Levaquin 11/23 Hx Tablets 750mg 14Day 1 PO qd 461.0 [place]. s Darrion hernandez M.D. 02/12 Tessalon Perles 11/23 Hx Capsules 100mg 30cap 1-2 po tid 461.0 [place]es. s Darrion hernandez M.D. 05/18 Advair HFA 09/18 Hx 115/21 1unit 2 puff bid [place] s Prior To Darrion - Jaquaning Treva hernandez 05/18 Albuterol 07/17 Hx Aerosol 90mcg/Dos 2unit 2 Puffs [place] e s Q4H prn Darrion hernandez M.D. 05/18 Zithromax Z-Biju 06/06 Hx Tablets 250mg 1tabs 1 pack as 483.0 [place]ady Cortes. directed Darrion hernandez M.D. 07/12 Zithromax Z-Biju 05/04 Hx [...] Tablets 4mg 1tabs take as 461.2 Terrell Francisco Clay MD 04/13 Zithromax Z-Biju 07/14 Hx Tablets 250mg 1tabs 1 pack as [place] davie hernandez M.D. 03/13 Prednisone 03/10 Hx Tablets 20mg 5Days 3 po qd 462 [place] N. with food Darrion hernandez M.D. 05/18 Tequin 11/30 Hx Tablets 400mg 10tab 1 po qd 461.0 [place]. s Darrion hernandez M.D. 03/10 Medrol Dose Biju 11/30 Hx Tablets 4mg 1tabs 1 Pack as 461.0 [place] N. Directed Darrion hernandez M.D. 03/10 Zithromax Z-Biju 11/24 Hx Tablets 250mg 1tabs 1 Pack as [place] N. Directed Darrion hernandez M.D. 11/30 Zithromax Tri-Biju 09/06 Hx Tablets 500mg 1tabs 1 for 3 461.2 /2004 days Jacinto Thomas, 11/30.D. Nasacort Aq 09/06 Hx Suspension 55mcg/Act 1unit 2 sprays 461.2 Yaakov Intranasal [place] /2004 uation s each J. - nostril qd William 03/13.. Nasacort Aq 07/26 Hx Suspension 55mcg/Act 1unit 2 sprays Terrell Intranasal [place] /2004 uation s each Rayne Moran, - nostril qd 07/12 Michelle 06/30 Hx Tablets 180mg 30tab 1 po qd [place] N. s Darrion hernandez M.D. 05/18 Fluvoxamine Hx Tablets 25mg Unknown / - 05/18 Clonazepam Hx Tablets 0.5mg - 05/18 Hytrin Hx Capsules 1mg Unknown - 05/18 Avodart Hx Capsules 0.5mg 1 po qd [place], /0000 Tawanda Singh M.D. 10/26 Nasacort Aq 00/ Hx Unknown / - 02/25 Zyrtec Allergy Hx Unknown / - 02/25 Risperidone / Hx 0.25mg 1 po QHS [place], /0000 Tawanda Singh M.D. 02/25 Sertraline HCL 00 Hx 100mg 1 po daily [place], /0000 Tawanda Singh M.D. 09/15 Donepezil HCL Hx 10mg 1 po daily [place], /0000 Tawanda Singh M.D. 09/15 Namenda Hx 10mg 1 po daily [place], /0000 Tawanda Singh M.D. 09/15 Montelukast Hx 10mg 1 po daily [place], Sodium /0000 Tawanda Singh M.D. 02/25 Spiriva Hx 18mcg 1 cap [place], Handihaler /0000 daily Tawanda Singh M.D. 01/27 Benzonatate Hx Capsules 200mg 90cap 1 take by [place], /0000 s mouth Tawanda Gupta - capsule 3 M.Ann 10/26 times per day for cough Omeprazole Hx Capsules DR 40mg 60cap 1 2 hours 786.2 [place], /0000 s after Tawanda owusuner Treva 10/26 Prednisone Hx Tablets 20mg [place], /0000 Andrew Singh M.D. 01/03 Amoxicillin/Clavu Hx Tablets 875-125mg Take One Unknown lanate Potassium /0000 Tablet By - Mouth 01/03 Twice A Day Medications Administered in Office Medication Date Status Form Strength Qnty SIG Indications Ordering Provider Allergen Administered Injection Yaakov Gifford IgE 997 Treva Thomas Immunizations CPT Code Status Date Vaccine Lot # 25753 Given Unknown Prevnar 13 For Intramuscular Use 35569 Given Unknown Influenza Virus Vaccine, 3 Years Of Age And Above, Intramuscular Vital Signs Date Vital Result Comment 04/10/2018 10:32am Weight 162.00 lb Weight 73.483 [...] Result H/L Range Note Laboratory test 06/17/2014 [facility] Glucose 99 mg/ dL N 70-100 finding c/o Department [place] [address] [phone] Blood Urea Nitrogen 27 mg/dL High 6-24 Creatinine 06/17/2014 [facility] Creatinine 1.95 mg/ dL High 0.67-1.17 c/o Department of Laboratories [place], [place] [id number] [phone] Egfr Non- 32.9 N >60 Egfr 42.3 N >60 1 Laboratory test 06/17/2014 [facility] Triglycerides 121 mg/dL N 2 finding c/o [place] [address] [phone] Cholesterol 181 mg/dL N 3 T4 5.50 g/dL Low 6.09-12.23 Total T3 0.93 ng/mL N 0.87-1.78 TSH (Thyroid Stimulating Horm) 6.44 IU/mL High 0.34-5.60 Erythrocyte Sed Rate 21 mm/Hr N 0-40 Hemoglobin A1c 6.4 % High Less than 6.0 4 Syphilis 06/17/2014 [facility] Syphilis IgG Nonreactive N Nonreactive 5 Screen c/o Department [place] [address] [phone] RPR TNP N Nonreactive RPR Titer TNP N Pediatric/Maternal NO N Laboratory 06/17/2014 [facility] [place] Reflexed Abnormal Negative test finding c/o Department of Laboratories ([place] [address] AB) Screen [phone] Fta-Abs Negative N Negative 6 H Pylori Iga 06/17/2014 [facility] Helicobacter Negative N Negative c/o Department of Laboratories pylori IgA Ab [place], [place] [id number] [phone] H pylori IgA Ab Index 5.97 N 7 H.Pylori Igg 06/17/2014 [facility] Helicobacter Positive N Negative 8 AB c/o Department [place] [address] [phone] H pylori IgG AB Index 9.83 N 9 H.Pylori Igm 06/17/2014 [facility] Helicobacter Negative N Negative AB c/o Department of [place] [address] [phone] H pylori IgM AB Index 19.90 N 10 Laboratory test 06/17/2014 [facility] Lyme Disease Negative N Negative 11 finding c/o Department [place] [address] [phone] Rheumatoid Factor <15 IU/mL N <15 12 [place] Hep-2 06/17/2014 [facility] [place] Pattern Negative N Negative 13 c/o Department [place] [address] [phone] [place] Reviewed By MD Parker Chavira <SEE NOTE> N 14 1 Because ethnic [...] and in selective patients <6.0%.Please refer to [employer] Diabetic care guidelines for further [...] by another syphilis test. Test Performed by: [place] [address] Acls Nurse: Tk Lr M.D. 7 Results with Index Values of <18.00 are negative. Test Performed by: [place] [address] Acls Nurse: Tk Lr M.D. 8 The presence of IgG-class antibody to H. pylori may indicate current or past infection. A positive antibody result alone is not diagnostic for current H. pylori infection. Acute infection can be diagnosed using the H. pylori urea breath test or the H. pylori stool antigen test. 9 Results with Index Values of=>8.95 are positive. Test Performed by: [place] [address] Acls Nurse: Tk rL M.D. 10 Results with Index Values of <36.00 are negative. Test Performed by: [place] [address] Acls Nurse: Tk Lr M.D. 11 Serologic response to B. burgdorferi infection is not detected, but cannot rule out early infection during which low or undetectable antibody levels to B. burgdorferi may be present. If clinically indicated, a new serum specimen should be submitted in 7-14 days. Test Performed by: [place] [address] Acls Nurse: Tk Lr M.D. 12 Test Performed by: [place] [address] Acls Nurse: Tk Lr M.D. 13 A number of healthy individuals have positive antinuclear antibody (AISLINN) screen results, many of which are likely to be clinical false-positives; the Fluorescent Antibody test is a second-order test which has shown to have a negative discernible AISLINN pattern. 14 Parker Riley Procedures Date Code Description Status 10/26/2016 48272 Demonstration/Eval. Of Patient Utilization Of Completed Spacer/Nebulizer 10/26/2016 82307 Inhalation Treatment Pressurized Or Nonpres.Acute Completed Airwy.Obstruct. 10/26/2016 85446 Fiberoptic Laryngoscopy Completed 05/13/2014 52613 Fiberoptic Laryngoscopy Completed 02/25/2014 84667 Fiberoptic Laryngoscopy Completed 01/27/2014 67477 Behavioral & Qualitative Analysis Of Voice & Resonance Completed 01/27/2014 85075 Videostroboscopy Completed 10/25/2013 12422 Spirometry Including Graphic Record, Total&Timed Vital Completed Capacity 10/25/2013 46278 Fiberoptic Laryngoscopy Completed 07/30/2009 71067 Pers Bal W/O Completed 03/05/2007 75711 Interest Income Completed 02/22/2007 68980 Prick Test Completed 02/22/2007 14006 Prick Test Completed 03/31/2003 28291 Comprehensive Audiogram Completed Encounters Type Date Location Provider Dx Diagnosis Office Visit 07/10/2018 [facility] Ghazal Richardson45.40 Moderate persistent 3:30p 05/15/07 PA-C asthma, uncomplicated J20.8 Acute bronchitis due to other specified organisms J01.80 Other acute sinusitis Office Visit 04/10/2018 10:15a [facility] Marli Andrade.40 Moderate persistent 05/15/07 TEN Clark asthma, uncomplicated J20.8 Acute bronchitis due to other specified organisms Office Visit 01/24/2018 [facility] [place] J18.9 Pneumonia, 3:15p 05/15/07 Treva Brewer unspecified organism Office Visit 12/19/2017 [facility] Grady Harman45.40 Moderate 9:00a 05/15/07 Treva Brewer persistent asthma, uncomplicated Office Visit 03/21/2017 [facility] rGady Harman45.52 Severe persistent 10:15a 05/15/07 Treva Brewer asthma with status asthmaticus Office Visit 02/28/2017 [facility] [place] R05 Cough 10:45a 05/15/07 Treva Brewer J45.52 Severe persistent asthma with status asthmaticus K21.9 Gastro-esophageal reflux disease without esophagitis Office Visit 01/03/2017 2:45p [facility] [place] K13.0 Diseases of 05/15/07 Treva Brewer lips J01.90 Acute sinusitis, unspecified Office Visit 12/06/2016 [facility] Grady Harman45.52 Severe 10:30a 05/15/07 Treva Brewer persistent asthma with status asthmaticus K21.9 Gastro-esophageal reflux disease without esophagitis K13.0 Diseases of lips Office Visit 10/26/2016 [facility] [place] J45.52 Severe 9:30a 05/15/07 Treva Brewer persistent asthma with status asthmaticus K21.9 Gastro-esophageal reflux disease without esophagitis Office Visit 09/16/2014 [facility] [place] 784.42 Dysphonia, 8:45a 05/15/07 Treva Brewer Hoarseness 530.81 Reflux, Gastroesophageal Office Visit 06/03/2014 10:15a [facility],After 05/15/07 Grady Brewer, 786.2 Cough M.D. 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 784.42 Dysphonia, Hoarseness Office Visit 12/10/2013 2:30p [facility]After 05/15/07 Grady Brewer, 786.2 Cough M.D. 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, Seasonal -Allergic Due To Pollen Office Visit 11/23/2006 11:00a [facility] 05/15/07 [place], 461.0 Sinusitis, Acute Christine LEISURE STUDIES PROFESSOR Maxillary 786.2 Cough 466.0 Bronchitis, Acute/Viral Office Visit 07/20/2006 [facility] [place] 464.00 Laryngitis, 11:00a 05/15/07 Treva Brewer Acute W/O Obstruction 461.0 Sinusitis, Acute Maxillary Office Visit 07/12/2006 [facility] [place] 461.0 Sinusitis, Acute 1:30p 05/15/07 Treva Brewer Maxillary 464.00 Laryngitis, Acute W/O Obstruction Office Visit 06/06/2006 [facility] [place] 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.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: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/15/07 Treva Brewer Mycoplasma Pneumoniae Office Visit 04/13/2006 [facility] [place] 461.0 Sinusitis, Acute 9:30a 05/15/07 Treva Brewer Maxillary 461.2 Sinusitis, Acute Ethmoidal Office Visit 03/13/2006 2:00p [facility],After 05/15/07 Terrell Mclain 461.0 Sinusitis, Acute MD Dean Maxillary 461.2 Sinusitis, Acute Ethmoidal Office Visit 03/10/2005 [facility] [place] 462 Pharyngitis, 12:00p 05/15/07 Treva Brewer Acute Office Visit 11/30/2004 [facility] [place] 461.0 Sinusitis, Acute 9:15a 05/15/07 Treva Brewer Maxillary Office Visit 09/06/2004 [facility] Yaakov Casey 461.2 Sinusitis, Acute 4:00p 05/15/07 Treva Thomas Ethmoidal 461.0 Sinusitis, Acute Maxillary Office Visit 07/26/2004 2:45p [facility],After 05/15/07 Yaakov Casey 462 Pharyngitis, Acute Treva Thomas 460 Rhinitis /Nasopharygitis Acute Office Visit 01/30/2004 11:30a [facility]After 05/15/07 Yaakov Thomas, 784.7 Epistaxis Treva 473.2 Sinusitis, Chronic Ethmoidal 473.0 Sinusitis, Chronic Maxillary Office Visit 01/01/2004 2:00p [facility]After 05/15/07 Yaakov Casey 473.2 Sinusitis, Treva Thomas Chronic Ethmoidal 466.0 Bronchitis, Acute/Viral Office Visit 09/24/2003 12:00p [facility],After 05/15/07 Yaakov Casey 461.0 Sinusitis, Acute Treva Thomas Maxillary 461.2 Sinusitis, Acute Ethmoidal Office Visit 03/19/2003 11:30a [facility]After 05/15/07 Yaakov Casey 477.0 Rhinitis, Treva Thomas Seasonal -Allergic Due To Pollen 380.4 Impacted Cerumen / Wax Plan of Treatment No Information Available
[2018-07-24] MEDS ORDERED: NS 0.9% 1000 ML** 1,000 ML IV ONE (13:49)
[2018-07-24 14:04] LABS: ABS Basophils 0 10^3/ul (0-0.2); ABS Eosinophils 0.2 10^3/ul (0-0.6); ABS Monocytes 0.4 10^3/ul (0-0.8); ABS Neutrophils 4.2 10^3/ul (1.5-7.7); ABS Nucleated RBC 0 10^3/ul; Eosinophil % 2.7 %; Hematocrit 39 % (42-52); Hemoglobin 12.6 g/dl (14.0-18.0); Lymphocyte % 29.6 %; Mean Corpuscular HGB Conc 33 g/dl (31-36); Mean Corpuscular Hemoglobin 31 pg (27-31); Mean Corpuscular Volume 94 fL (80-94); Mean Platelet Volume 8.2 fL (7.4-10.4); Nucleated Red Blood Cells % 0.1; Platelet Count 208 10^3/ul (150-450); Red Blood Count 4.13 10^6/ul (4.00-5.40); Red Cell Distribution Width 15 % (10.5-15); White Blood Count 6.9 10^3/ul (3.5-10.8)
[2018-07-24 14:26] LABS: Albumin 3.8 g/dL (3.2-5.2); Albumin/Globulin Ratio 1.3 (1-3); C Reactive Protein 1.3 mg/L (<8.01); Calcium 8.6 mg/dL (8.6-10.3); EGFR African American 57.7 (>60); EGFR Non-African American 47.7 (>60); Globulin 2.9 g/dL (2-4); Potassium 4.1 mmol/L (3.5-5.0); Total Bilirubin 0.3 mg/dL (0.2-1.0); Total Protein 6.7 g/dL (6.4-8.9)
[2018-07-24 15:20] LABS: Urine Appearance Cloudy; Urine Bacteria Absent (Absent); Urine Bilirubin Negative (Negative); Urine Blood Negative (Negative); Urine Color Yellow; Urine Glucose Negative (Negative); Urine Ketones Negative (Negative); Urine Nitrite Positive (Negative); Urine Protein Negative (Negative); Urine Red Blood Cell 1+(3-5/hpf) (Absent); Urine Specific Gravity 1.017 (1.010-1.030); Urine Urobilinogen Negative (Negative); Urine White Blood Cell 3+(>20/hpf) (Absent)
[2018-07-24 16:02] VITALS: BP 140/84
--- NOTE | 2018-07-26 07:10 | PN ---
Progress Note - Progress Note Date of Service: 07/24/18 Note: Patient was seen here in the ED for dehydration and was found to have UTI Patient was placed on Bactrim prior to discharge Urine culture preliminary grew Staphylococcus epidermidis 100,000 We will await sensitivities at this time
--- NOTE | 2018-07-28 07:40 | PN ---
Progress Note - Progress Note Date of Service: 07/24/18 Note: Patient presented to the ED with weakness, however no UTI symptoms or concerns No history of UTI UA culture final grew staph epidermidis This is likely contaminated Patient was placed on Bactrim prior to discharge This was not part of the sensitive or resistant cohort Likely UTI was covered - however this is also likely contaminated Patient has close f/u with PCP and was told to have a repeat UA Nothing further is needed at this time.
--- NOTE | 2018-08-21 08:21 | ED ---
Neurological HPI - HPI Summary HPI Summary: Patient is an 87-year-old male presenting to the ED from his PCP office with a concern for dehydration. at bedside states he has been weak over the past few days. Denies any urinary symptoms, abdominal pain, headaches, visual changes. Patient denies any body aches. is stating weakness and more fatigued than usual. Patient denies feeling this way. He denies any neuro deficits. He states he feels like he has been otherwise well. He continues to eat and drink well. - History of Current Complaint Chief Complaint: EDGeneral Stated Complaint: DEHYDRATED AND LIGHT HEADED PER PT Time Seen by Provider: 07/24/18 13:43 Hx Obtained From: Patient Onset/Duration: Sudden Onset Timing: Intermittent Episodes Lasting: Onset Severity: Mild Current Severity: Mild Seizure Severity: Moderate Pain Intensity: 0 Pain Scale Used: 0-10 Numeric Character: Weak TPA Considered: No - Allergy/Home Medications Allergies/Adverse Reactions: Allergies Allergy/AdvReac Type Severity Reaction Status Date / Time prednisone AdvReac Severe Anxiety Verified 05/06/18 13:53 muscle relaxers AdvReac Mild makes less Uncoded 05/06/18 13:53 relaxed PMH/Surg Hx/FS Hx/Imm Hx Previously Healthy: Yes Endocrine/Hematology History: Reports: Hx Thyroid Disease Denies: Hx Diabetes Cardiovascular History: Reports: Hx Coronary Artery Disease, Hx Hypercholesterolemia, Hx Valvular Heart Disease - Tricuspid, mitral Denies: Hx Hypertension, Hx Pacemaker/ICD Respiratory History: Reports: Hx Asthma - new dx 04/2013, Hx Sleep Apnea - REFUSES TO USE MACHINE, Other Respiratory Problems/Disorders - ex-smoker, dyspnea Denies: Hx Chronic Obstructive Pulmonary Disease (COPD) GI History: Reports: Hx Gastroesophageal Reflux Disease - ON MEDICATION FOR, Hx Irritable Bowel Denies: Hx Ulcer History: Reports: Hx Benign Prostatic Hyperplasia Denies: Hx Kidney Stones Musculoskeletal History: Reports: Hx Arthritis - NECK Denies: Hx Rheumatoid Arthritis, Hx Osteoporosis Sensory History: Reports: Hx Cataracts, Hx Contacts or Glasses - READING Denies: Hx Hearing Aid Opthamlomology History: Reports: Hx Cataracts, Hx Contacts or Glasses - READING Neurological History: Reports: Hx Dementia Denies: Other Neuro Impairments/Disorders Psychiatric History: Reports: Hx Anxiety - NO MEDICATION FOR, Hx Depression - NO MEDICATION FOR Denies: Hx Eating Disorder, Hx Panic Disorder, Hx of Violent Episodes Against Others - Surgical History Surgery Procedure, Year, and Place: appendectomy, tonsilectomy "Years Ago". right ankle SURGERY Hx Anesthesia Reactions: No - Immunization History Hx Pertussis Vaccination: No Immunizations Up to Date: Yes Infectious Disease History: No Infectious Disease History: Reports: Hx Shingles Denies: Hx Clostridium Difficile, Hx Hepatitis, Hx Human Immunodeficiency Virus (HIV), Hx of Known/Suspected MRSA, Hx Tuberculosis, Hx Known/Suspected VRE , Hx Known/Suspected VRSA, History Other Infectious Disease, Traveled Outside the [place] in Last 30 Days - Family History Known Family History: Positive: Hypertension - Social History Occupation: Unemployed Lives: With Family Alcohol Use: Daily Alcohol Amount: WINE WITH DINNER Hx Substance Use: No Substance Use Type: Reports: None Hx Tobacco Use: No Smoking Status (MU): Former Smoker Amount Used/How Often: VERY SHORT PERIOD OF TIME Review of Systems Positive: Fatigue. Negative: Fever, Chills, Skin Diaphoresis Negative: Palpitations, Chest Pain Negative: Shortness Of Breath, Cough Genitourinary: Negative Positive: no symptoms reported, see HPI Negative: Arthralgia, Myalgia Positive: Weakness Psychological: Normal All Other Systems Reviewed And Are Negative: Yes Physical Exam Triage Information Reviewed: Yes Vital Signs On Initial Exam: Initial Vitals Temp Pulse Resp BP Pulse Ox 98.3 F 57 18 126/74 99 07/24/18 12:04 07/24/18 12:04 07/24/18 12:04 07/24/18 12:04 07/24/18 12:04 Vital Signs Reviewed: Yes Appearance: Positive: Well-Appearing, Well-Nourished Skin: Positive: Warm, Skin Color Reflects Adequate Perfusion Head/Face: Positive: Normal Head/Face Inspection Eyes: Positive: EOMI, Conjunctiva Clear Neck: Positive: Supple, No Lymphadenopathy Respiratory/Lung Sounds: Positive: Clear to Auscultation, Breath Sounds Present Musculoskeletal: Positive: Strength/ROM Intact Neurological: Positive: Sensory/Motor Intact, Alert, Oriented to Person Place, Time, Speech Normal Psychiatric: Positive: Affect/Mood Appropriate AVPU Assessment: Alert Diagnostics - Vital Signs Vital Signs Temp Pulse Resp BP Pulse Ox 07/24/18 16:02 98.1 F 51 18 140/84 100 07/24/18 15:59 140/84 07/24/18 15:00 50 07/24/18 14:21 138/54 07/24/18 14:02 101 98 07/24/18 13:50 132/84 07/24/18 12:04 98.3 F 57 18 126/74 99 - Laboratory Lab Results: Lab Results 07/24/18 07/24/18 07/24/18 Range/Units 13:54 13:54 13:54 WBC 6.9 (3.5-10.8) 10^3/ul RBC 4.13 (4.00-5.40) 10^6/ul Hgb 12.6 L (14.0-18.0) g/dl Hct 39 L (42-52) % MCV 94 (80-94) fL MCH 31 (27-31) pg MCHC 33 (31-36) g/dl RDW 15 (10.5-15) % Plt Count 208 (150-450) 10^3/ul MPV 8.2 (7.4-10.4) fL Neut % (Auto) 61.0 % Lymph % (Auto) 29.6 % [place] % (Auto) 6.1 % Eos % (Auto) 2.7 % Baso % (Auto) 0.6 % Absolute Neuts (auto) 4.2 (1.5-7.7) 10^3/ul Absolute Lymphs (auto) 2.0 (1.0-4.8) 10^3/ul Absolute Monos (auto) 0.4 (0-0.8) 10^3/ul Absolute Eos (auto) 0.2 (0-0.6) 10^3/ul Absolute Basos (auto) 0 (0-0.2) 10^3/ul Absolute Nucleated RBC 0 10^3/ul Nucleated RBC % 0.1 Sodium 138 (135-145) mmol/L Potassium 4.1 (3.5-5.0) mmol/L Chloride 106 (101-111) mmol/L Carbon Dioxide 25 (22-32) mmol/L Anion Gap 7 (2-11) mmol/L BUN 28 H (6-24) mg/dL Creatinine 1.40 H (0.67-1.17) mg/dL Est GFR ( Amer) 57.7 (>60) Est GFR (Non-Af Amer) 47.7 (>60) BUN/Creatinine Ratio 20.0 (8-20) Glucose 94 (70-100) mg/dL Calcium 8.6 (8.6-10.3) mg/dL Total Bilirubin 0.30 (0.2-1.0) mg/dL AST 17 (13-39) U/L ALT 7 (7-52) U/L Alkaline Phosphatase 59 (34-104) U/L Troponin I 0.00 (<0.04) ng/mL C-Reactive Protein 1.30 (<8.01) mg/L B-Natriuretic Peptide 23 (<=100) pg/mL Total Protein 6.7 (6.4-8.9) g/dL Albumin 3.8 (3.2-5.2) g/dL Globulin 2.9 (2-4) g/dL Albumin/Globulin Ratio 1.3 (1-3) Urine Color Urine Appearance Urine pH (5-9) Ur Specific [place] (1.010-1.030) Urine Protein (Negative) Urine Ketones (Negative) Urine Blood (Negative) Urine Nitrate (Negative) Urine Bilirubin (Negative) Urine Urobilinogen (Negative) Ur Leukocyte Esterase (Negative) Urine WBC (Auto) (Absent) Urine RBC (Auto) (Absent) Urine Bacteria (Absent) Urine Glucose (Negative) 07/24/18 Range/Units 14:55 WBC (3.5-10.8) 10^3/ul RBC (4.00-5.40) 10^6/ul Hgb (14.0-18.0) g/dl Hct (42-52) % MCV (80-94) fL MCH (27-31) pg MCHC (31-36) g/dl RDW (10.5-15) % Plt Count (150-450) 10^3/ul MPV (7.4-10.4) fL Neut % (Auto) % Lymph % (Auto) % [place] % (Auto) % Eos % (Auto) % Baso % (Auto) % Absolute Neuts (auto) (1.5-7.7) 10^3/ul Absolute Lymphs (auto) (1.0-4.8) 10^3/ul Absolute Monos (auto) (0-0.8) 10^3/ul Absolute Eos (auto) (0-0.6) 10^3/ul Absolute Basos (auto) (0-0.2) 10^3/ul Absolute Nucleated RBC 10^3/ul Nucleated RBC % Sodium (135-145) mmol/L Potassium (3.5-5.0) mmol/L Chloride (101-111) mmol/L Carbon Dioxide (22-32) mmol/L Anion Gap (2-11) mmol/L BUN (6-24) mg/dL Creatinine (0.67-1.17) mg/dL Est GFR ( Amer) (>60) Est GFR (Non-Af Amer) (>60) BUN/Creatinine Ratio (8-20) Glucose (70-100) mg/dL Calcium (8.6-10.3) mg/dL Total Bilirubin (0.2-1.0) mg/dL AST (13-39) U/L ALT (7-52) U/L Alkaline Phosphatase (34-104) U/L Troponin I (<0.04) ng/mL C-Reactive Protein (<8.01) mg/L B-Natriuretic Peptide (<=100) pg/mL Total Protein (6.4-8.9) g/dL Albumin (3.2-5.2) g/dL Globulin (2-4) g/dL Albumin/Globulin Ratio (1-3) Urine Color Yellow Urine Appearance Cloudy Urine pH 6.0 (5-9) Ur Specific [place] 1.017 (1.010-1.030) Urine Protein Negative (Negative) Urine Ketones Negative (Negative) Urine Blood Negative (Negative) Urine Nitrate Positive A (Negative) Urine Bilirubin Negative (Negative) Urine Urobilinogen Negative (Negative) Ur Leukocyte Esterase 3+ A (Negative) Urine WBC (Auto) 3+(>20/hpf) A (Absent) Urine RBC (Auto) 1+(3-5/hpf) A (Absent) Urine Bacteria Absent (Absent) Urine Glucose Negative (Negative) Result Diagrams: 07/24/18 13:54 07/24/18 13:54 Lab Statement: Any lab studies that have been ordered have been reviewed, and results considered in the medical decision making process. Course/Dx - Course Course Of Treatment: During his course stream, the patient is evaluated for possible dehydration. Patient denies any symptoms, however endorses weakness. Labs obtained which are all WNL. UA obtained which shows 3+ leukocytes and 3+ study PVCs. He will be treated for a UTI. He is given Bactrim and we will await sensitivities. Patient states he is okay for discharge at this time and feels well. Nothing further is needed. - Diagnoses Provider Diagnoses: Weakness Discharge - Sign-Out/Discharge Documenting (check all that apply): Patient Departure Patient Received Moderate/Deep Sedation with Procedure: No - Discharge Plan Condition: Stable Disposition: HOME Prescriptions: Sulfamethox/Trimethoprim DS* [Bactrim DS 800/160 TAB*] 1 tab PO BID #10 tab MDD 2 Patient Education Materials: Urinary Tract Infection in Men (ED) Referrals: Jose Roberto Ryan NP [Primary Care Provider] - Additional Instructions: Please follow up with your PCP Call office to make them aware you have a UTI Bactrim twice daily x 5 days - Billing Disposition and Condition Condition: STABLE Disposition: Home
== END 2018-07-24 16:02 | disposition home or self-care (01) ==
LOC: ED 12:03
DX: N39.0 Urinary tract infection, site not specified (principal); B95.7 Other staphylococcus as the cause of diseases classified elsewhere; R53.1 Weakness; R53.83 Other fatigue; R00.1 Bradycardia, unspecified; I25.10 Atherosclerotic heart disease of native coronary artery without angina pectoris; I08.1 Rheumatic disorders of both mitral and tricuspid valves; J45.909 Unspecified asthma, uncomplicated; K21.9 Gastro-esophageal reflux disease without esophagitis; N40.0 Benign prostatic hyperplasia without lower urinary tract symptoms; Z88.8 Allergy status to other drugs, medicaments and biological substances; Z87.891 Personal history of nicotine dependence
CPT/HCPCS: 36415; 80053; 81003; 81015; 83880; 84484; 85025; 86140; 87077; 87086; 87186; 93005; 96360; 99282